=== PATIENT | female | born 1995 | race Caucasian/White ===

== ENCOUNTER → 2018-10-11 | Outpatient (CLI) | payer OTHER | END | disposition home or self-care (01) | LOC: LAB 11:08 | PROVIDERS: ATTEND Registered Nurse General Practice | DX: Z20.9 Contact with and (suspected) exposure to unspecified communicable disease (principal) | CPT/HCPCS: 36415; 86706; 86735; 86762; 86765; 86787 ==

== ENCOUNTER → 2019-10-09 | Outpatient (CLI) | payer OTHER | END | disposition home or self-care (01) | LOC: LAB 13:20 | PROVIDERS: ATTEND Nurse Practitioner Family | DX: Z20.9 Contact with and (suspected) exposure to unspecified communicable disease (principal) | CPT/HCPCS: 36415; 86706 ==

== ENCOUNTER → 2019-10-16 | Outpatient (CLI) | payer OTHER | END | disposition home or self-care (01) | LOC: LAB 14:57 | PROVIDERS: ATTEND Nurse Practitioner Family | DX: Z20.9 Contact with and (suspected) exposure to unspecified communicable disease (principal) | CPT/HCPCS: 86765 ==

== ENCOUNTER → 2021-07-06 | Outpatient (CLI) | payer BC ==
[2021-07-06 10:58] LABS: Basophils # (auto) 0 10 ^3/uL (0-0.2); Basophils % (auto) 0.2 % (0.0-2.0); Eosinophils # (auto) 0.2 10 ^3/uL (0-0.8); Eosinophils % (auto) 2.9 % (0.0-7.0); Hematocrit 40.6 % (36.0-46.0); Hemoglobin 14.3 g/dL (12.2-16.2); Lymphocytes # (auto) 2.7 10 ^3/uL (0.4-5.4); Lymphocytes % (auto) 44.1 % (10.0-50.0); Mean Corpuscular Hemoglobin 32.2 pg (28.0-32.0); Mean Corpuscular Hgb Conc. 35.2 g/dL (32.0-36.0); Mean Corpuscular Volume 91.6 fL (80.0-100.0); Monocytes # (auto) 0.5 10 ^3/uL (0-1.3); Monocytes % (auto) 8.4 % (0.0-12.0); Neutrophils # (auto) 2.7 10 ^3/uL (1.6-8.6); Neutrophils % (auto) 44.4 % (37.0-80.0); Nucleated Red Blood Cells % 0.1 %; Red Blood Cells 4.43 10^6/uL (4.0-5.20); Red Cell Distribution Width 12.8 % (11.8-14.3); White Blood Cell 6.1 10^3/uL (4.4-10.8)
[2021-07-06 11:41] LABS: Potassium 4.4 mmol/L (3.5-5.1)
[2021-07-06 12:06] LABS: Albumin 3.7 g/dL (3.4-5.0); BUN/Creatinine Ratio 14.9; Bilirubin, Total 0.4 mg/dL (0.2-1.0); Calcium 8.8 mg/dL (8.5-10.1); Total Protein 7.4 g/dL (6.4-8.2)
[2021-07-06 12:57] LABS: Urine Bacteria NONE SEEN /hpf (None Seen); Urine Blood Negative /uL (Negative); Urine Specific Gravity 1.023 (1.001-1.035); Urine WBC <1 /hpf (0 - 5)
== END | disposition home or self-care (01) ==
LOC: LAB 10:01
PROVIDERS: ATTEND Student in an Organized Health Care Education/Training Program
DX: Z00.00 Encounter for general adult medical examination without abnormal findings (principal); R03.0 Elevated blood-pressure reading, without diagnosis of hypertension
CPT/HCPCS: 36415; 80053; 80061; 81001; 84443; 85025

== ENCOUNTER → 2024-04-01 | Outpatient (CLI) | payer BC ==
[~2024-04-01] MED LIST: [UNRECOGNIZED DRUG - CODE] IM
[2024-04-01 12:49] LABS: Basophils # (auto) 0 10 ^3/uL (0-0.2); Basophils % (auto) 0.3 % (0.0-2.0); Eosinophils # (auto) 0.2 10 ^3/uL (0-0.8); Eosinophils % (auto) 1.4 % (0.0-7.0); Hematocrit 43.7 % (36.0-46.0); Hemoglobin 15.3 g/dL (12.2-16.2); Lymphocytes # (auto) 3.4 10 ^3/uL (0.4-5.4); Lymphocytes % (auto) 29.7 % (10.0-50.0); Mean Corpuscular Hemoglobin 32.4 pg (28.0-32.0); Mean Corpuscular Hgb Conc. 34.9 g/dL (32.0-36.0); Mean Corpuscular Volume 92.7 fL (80.0-100.0); Monocytes # (auto) 1.1 10 ^3/uL (0-1.3); Monocytes % (auto) 9.4 % (0.0-12.0); Neutrophils # (auto) 6.7 10 ^3/uL (1.6-8.6); Neutrophils % (auto) 59.2 % (37.0-80.0); Platelet Count (auto) 335 10^3/uL (140-450); Red Blood Cells 4.71 10^6/uL (4.0-5.20); Red Cell Distribution Width 12.2 % (11.8-14.3); White Blood Cell 11.3 10^3/uL (4.4-10.8)
[2024-04-01 13:13] LABS: Alanine Aminotransferase 15 U/L (7-40); Albumin 4.6 g/dL (3.2-4.8); Alkaline Phosphatase 35 U/L (46-116); Anion Gap 9 (5-15); Aspartate Aminotransferase 10 U/L (13-40); BUN/Creatinine Ratio 8.6 (10.0-20.0); Blood Urea Nitrogen 7 mg/dL (9-23); Calcium 10.2 mg/dL (8.7-10.4); Carbon Dioxide 24 mmol/L (20-31); Chloride 104 mmol/L (98-107); Cholesterol 156 mg/dL (< 200); Glucose 85 mg/dL (74-106); HDL Cholesterol 57 mg/dL (40-59); LDL Cholesterol 88 mg/dL (< 100); Potassium 3.9 mmol/L (3.5-5.1); Sodium 137 mmol/L (136-145); Thyroid Stimulating Hormone 1.14 uIU/mL (0.55-4.78); Triglycerides 98 mg/dL (< 150)
[2024-04-01 13:14] LABS: Bilirubin, Total 0.4 mg/dL (0.2-1.0); Total Protein 7.3 g/dL (5.7-8.2)
[2024-04-01 13:21] LABS: Beta HCG, Quantitative 114434.5 mIU/mL (1.5-4.2)
[2024-04-01 13:26] LABS: Amphetamine Screen, Urine Neg (NEGATIVE); Barbiturate Scree,Urine Neg (NEGATIVE); Benzodiazephine Screen, Urine Neg (NEGATIVE); Cannabinoid Screen, Urine Neg (NEGATIVE); Cocaine Screen, Urine Neg (NEGATIVE); Opiate Scree,Urine Neg (NEGATIVE); Phencyclidine Screen, Urine Neg (NEGATIVE)
[2024-04-02 05:08] LABS: Varicella Zoster IgG Antibody Reactive (Non Reactive)
[2024-04-02 08:07] LABS: RPR Non Reactive (Non Reactive)
[2024-04-02 13:06] LABS: Chlamydia Trachomatis, NAA Negative (Negative); Neisseria gonorrhoeae, NAA Negative (Negative)
== END | disposition home or self-care (01) ==
LOC: LAB 12:09
PROVIDERS: ATTEND Obstetrics & Gynecology
DX: Z34.00 Encounter for supervision of normal first pregnancy, unspecified trimester (principal); Z31.430 Encounter of female for testing for genetic disease carrier status for procreative management; Z36.0 Encounter for antenatal screening for chromosomal anomalies; N39.0 Urinary tract infection, site not specified
CPT/HCPCS: 36415; 80053; 80061; 80307; 83036; 84439; 84443; 84702; 85025; 86592; 86703; 86762; 86787; 86850; 86900; 86901; 87086; 87340; 87902

== ENCOUNTER → 2024-08-21 | Outpatient (CLI) | payer BC ==
[2024-08-21 10:34] LABS: Basophils # (auto) 0 10 ^3/uL (0-0.2); Basophils % (auto) 0.1 % (0.0-2.0); Eosinophils # (auto) 0.2 10 ^3/uL (0-0.8); Eosinophils % (auto) 1.7 % (0.0-7.0); Hematocrit 39.3 % (36.0-46.0); Lymphocytes # (auto) 2.3 10 ^3/uL (0.4-5.4); Lymphocytes % (auto) 24.4 % (10.0-50.0); Mean Corpuscular Hemoglobin 33.2 pg (28.0-32.0); Mean Corpuscular Hgb Conc. 35.6 g/dL (32.0-36.0); Mean Corpuscular Volume 93.3 fL (80.0-100.0); Monocytes % (auto) 10.5 % (0.0-12.0); Neutrophils % (auto) 63.3 % (37.0-80.0); Platelet Count (auto) 246 10^3/uL (140-450); Red Blood Cells 4.22 10^6/uL (4.0-5.20); Red Cell Distribution Width 12.6 % (11.8-14.3); White Blood Cell 9.4 10^3/uL (4.4-10.8)
[2024-08-21 10:36] LABS: Alanine Aminotransferase 15 U/L (7-40); Albumin 4.1 g/dL (3.2-4.8); Alkaline Phosphatase 51 U/L (46-116); Anion Gap 9 (5-15); Aspartate Aminotransferase 14 U/L (13-40); BUN/Creatinine Ratio 14.6 (10.0-20.0); Calcium 9.5 mg/dL (8.7-10.4); Carbon Dioxide 22 mmol/L (20-31); Chloride 105 mmol/L (98-107); Glucose 92 mg/dL (74-106); Potassium 3.9 mmol/L (3.5-5.1); Sodium 136 mmol/L (136-145); Total Protein 6.8 g/dL (5.7-8.2)
[2024-08-21 10:37] LABS: Bilirubin, Total 0.4 mg/dL (0.2-1.0); Blood Urea Nitrogen 7 mg/dL (9-23)
[2024-08-22 13:07] LABS: Chlamydia Trachomatis, NAA Negative (Negative); Neisseria gonorrhoeae, NAA Negative (Negative)
== END | disposition home or self-care (01) ==
LOC: LAB 08-09 10:55
DX: Z34.00 Encounter for supervision of normal first pregnancy, unspecified trimester (principal); Z3A.00 Weeks of gestation of pregnancy not specified
CPT/HCPCS: 36415; 80053; 82951; 83036; 85025; 86780

== ENCOUNTER 2024-09-19 15:00 | Observation (INO) | payer BC ==
[2024-09-19 15:49] LABS: Albumin 4.1 g/dL (3.2-4.8); Alkaline Phosphatase 74 U/L (46-116); Anion Gap 7 (5-15); BUN/Creatinine Ratio 11.1 (10.0-20.0); Carbon Dioxide 25 mmol/L (20-31); Chloride 105 mmol/L (98-107); Glucose 80 mg/dL (74-106); Potassium 3.6 mmol/L (3.5-5.1); Sodium 137 mmol/L (136-145); Total Protein 6.6 g/dL (5.7-8.2); Uric Acid 3.9 mg/dL (3.1-7.8)
[2024-09-19 15:50] LABS: Aspartate Aminotransferase 12 U/L (13-40); Bilirubin, Total 0.4 mg/dL (0.2-1.0); Blood Urea Nitrogen 7 mg/dL (9-23)
[2024-09-19 15:51] LABS: Alanine Aminotransferase 10 U/L (7-40)
--- NOTE | 2024-09-19 15:52 | DVH ---
BIOPHYSICAL PROFILE HISTORY: GDMA1/ r/o PIH TECHNIQUE: Multiple transabdominal real-time grayscale sonographic images through the gravid uterus o f the fetus with duplex doppler color flow and M-mode spectral analysis FINDINGS: BIOPHYSICAL PROFILE: breathing score: 2 movement score: 2 tone score: 2 Quantitative KAYA score: 2 (KAYA: 18.1 cm.) Total score: 8/8 Single live fetus in cephalic presentation. heart rate 154 beats per minute. Posterior placenta without previa or abruption Biophysical profile score 8/8 corresponding to an HECTOR of 11/14/24 IMPRESSION: Biophysical profile score: 8/8
[2024-09-19 15:55] LABS: Urine Bacteria MOD /hpf (None Seen); Urine Blood Negative /uL (Negative); Urine Budding Yeast OCCASIONAL /hpf (None Seen); Urine Clarity Turbid (Clear); Urine Color Yellow (Yellow); Urine Mucus FEW (None Seen); Urine Protein, UAD 1+ (Negative); Urine Squamous Epithelial Cell MANY /hpf (<5); Urine Urobilinogen Normal (Negative); Urine WBC 5 /HPF (0-5); Urine pH 6.5 (5.0-9.0)
[2024-09-19 16:03] LABS: INR 0.93 (0.9-1.15); Partial Thromboplastin Time 27.7 SEC (24.5-34.5); Prothrombin Time 9.9 sec (9.3-11.8)
[2024-09-19 16:03] LABS: Protein, Urine 23.8 mg/dL (1-14)
[2024-09-19 16:06] LABS: Creatinine, Urine 222.34 mg/dL (30.0-125.0); Urine Protein/Creatinine Ratio 0.11
[2024-09-19 16:41] LABS: Basophils # (auto) 0 10 ^3/uL (0-0.2); Basophils % (auto) 0.1 % (0.0-2.0); Eosinophils # (auto) 0.1 10 ^3/uL (0-0.8); Eosinophils % (auto) 0.8 % (0.0-7.0); Hematocrit 40.3 % (36.0-46.0); Hemoglobin 14.1 g/dL (12.2-16.2); Lymphocytes # (auto) 2.3 10 ^3/uL (0.4-5.4); Lymphocytes % (auto) 22.2 % (10.0-50.0); Mean Corpuscular Hemoglobin 32.8 pg (28.0-32.0); Mean Corpuscular Hgb Conc. 34.9 g/dL (32.0-36.0); Mean Corpuscular Volume 93.9 fL (80.0-100.0); Monocytes % (auto) 9.8 % (0.0-12.0); Neutrophils # (auto) 6.8 10 ^3/uL (1.6-8.6); Neutrophils % (auto) 67.1 % (37.0-80.0); Nucleated Red Blood Cells % 0.1 %; Platelet Count (auto) 245 10^3/uL (140-450); Red Blood Cells 4.29 10^6/uL (4.0-5.20); Red Cell Distribution Width 12.5 % (11.8-14.3); White Blood Cell 10.2 10^3/uL (4.4-10.8)
[2024-09-19] MEDS ORDERED: PREN-96 PO (16:59)
[2024-09-19] MEDS ORDERED: NITR-87 PO (16:59)
--- NOTE | 2024-09-20 11:48 | DVHDS2 ---
Physician Discharge Progress N Final Diagnosis: gdm ,pih 35wks Operations or Procedures: Operations or Procedures nst reactive reviewed,sono Condition on Discharge: Good Disposition: Home Discharge Instructions: Diet: Consistent carbohydrate Activity: No Restrictions, As Tolerated Medications: na Follow Up Care: Specialist: 2d Discharge Statement: "Patient was advised to return to the ER or call 911 if any headaches, dizziness, shortness of breath, chest pain, abdominal pain, bleeding, fevers, or worsening of medical condition. Patient was counseled about treatment plan, medications, possible side effects, patientverbalized understanding. All questions were answered to the best of my ability. This discharge took greater then 30 minutes in planning, reviewing documentation, counseling the patient, and discussing with other team members." Visit Coding OBGYN Date of Service: September 20, 2024 Billing Provider: BRITNEY MALONE DO ERCO MACHINE OPERATOR Common Visit Codes: [id number] OBS CARE (HIGH) ERCO MACHINE OPERATOR Procedure Codes: 07131-32- NON-STRESS TEST, 00866-74- ASSIST @ C- SECTION BRITNEY MALONE DO September 20, 2024 11:48
== END 2024-09-19 17:10 | disposition home or self-care (01) ==
LOC: UNDOADMOB 15:00 → LDRP 15:00 → UNDODISOB 17:10
PROVIDERS: ADMIT Obstetrics & Gynecology; ATTEND Obstetrics & Gynecology
DX: O24.419 Gestational diabetes mellitus in pregnancy, unspecified control (principal); O13.3 Gestational [pregnancy-induced] hypertension without significant proteinuria, third trimester; Z3A.35 35 weeks gestation of pregnancy; Z79.899 Other long term (current) drug therapy; Z98.890 Other specified postprocedural states
CPT/HCPCS: 36415; 76818; 80053; 81001; 82570; 82948; 82962; 84156; 84550; 85025; 85610; 85730; 94760; G0378; 59025; 76819

== ENCOUNTER 2024-09-20 00:34 | Observation (INO) | payer BC ==
[~2024-09-20 00:34] MED LIST changes: +NITR-87 PO; +PREN-96 PO
--- NOTE | 2024-09-26 14:32 | DVH ---
BIOPHYSICAL PROFILE HISTORY: GDMA1 TECHNIQUE: Multiple transabdominal real-time grayscale sonographic images through the gravid uterus of the fetus with duplex Doppler color flow and M-mode spectral analysis FINDINGS: BIOPHYSICAL PROFILE: breathing score: 2 movement score: 2 tone score: 2 Quantitative KAYA score: 2 (KAYA: 17.7 Cm.) Total score: 8 The cervix not well visualized. Single live fetus in cephalic presentation. heart rate 140 beats per minute. Posterior placenta without previa or abruption IMPRESSION: Biophysical profile score: 8/8
--- NOTE | 2024-09-27 22:43 | DVHDS2 ---
Physician Discharge Progress N Final Diagnosis: gdm 33wks Operations or Procedures: Operations or Procedures nst reactive reviwed,sono Condition on Discharge: Good Disposition: Home Discharge Instructions: Diet: Consistent carbohydrate Activity: No Restrictions, As Tolerated Medications: na Follow Up Care: Specialist: 1w Discharge Statement: "Patient was advised to return to the ER or call 911 if any headaches, dizziness, shortness of breath, chest pain, abdominal pain, bleeding, fevers, or worsening of medical condition. Patient was counseled about treatment plan, medications, possible side effects, patientverbalized understanding. All questions were answered to the best of my ability. This discharge took greater then 30 minutes in planning, reviewing documentation, counseling the patient, and discussing with other team members." Visit Coding OBGYN Date of Service: September 26, 2024 Billing Provider: BRITNEY MALONE DO DRUG COORDINATOR Common Visit Codes: [id number] OBS CARE (HIGH) DRUG COORDINATOR Procedure Codes: 64553-94- NON-STRESS TEST BRITNEY MALONE DO September 27, 2024 22:43
== END 2024-09-26 15:33 | disposition home or self-care (01) ==
LOC: LDRP 09-26 13:05
PROVIDERS: ADMIT Obstetrics & Gynecology; ATTEND Obstetrics & Gynecology
DX: O24.419 Gestational diabetes mellitus in pregnancy, unspecified control (principal); Z3A.33 33 weeks gestation of pregnancy; Z79.899 Other long term (current) drug therapy; Z98.890 Other specified postprocedural states
CPT/HCPCS: 76818; 81002; 82948; 82962; 94760; G0378; 59025; 76819

== ENCOUNTER 2024-10-02 08:29 | Observation (INO) | payer BC ==
[~2024-10-02] VITALS: Ht 160 cm; Wt 86.2 kg
[~2024-10-02 08:29] MED LIST changes: -PREN-96 PO
--- NOTE | 2024-10-02 15:16 | DVH ---
BIOPHYSICAL PROFILE HISTORY: GDMA1 Comparison Study: US BIOPHYSICAL PROFILE on DOS: 09/26/24, US BIOPHYSICAL PROFILE on DOS: 09/19/24 TECHNIQUE: Multiple real-time grayscale sonographic images through the gravid uterus of the fetus wit h duplex doppler color flow and M-mode spectral analysis FINDINGS: BIOPHYSICAL PROFILE: breathing score: 2 movement score: 2 tone score: 2 Quantitative KAYA score: 2 (KAYA: 17.1 cm.) Total score: 8/8 Single live fetus in cephalic presentation. heart rate 132 beats per minute. Grade 1 posterior placenta without previa or abruption Biophysical profile score 8/8 corresponding to an HECTOR of 11/14/24 IMPRESSION: Biophysical profile score: 8/8
[2024-10-02] MEDS ORDERED: PREN-96 PO (15:21)
--- NOTE | 2024-10-02 16:07 | DVHDS2 ---
Physician Discharge Progress N Final Diagnosis: testing for GDM, A1 Operations or Procedures: Operations or Procedures 28yo IUP@33.6wks VSS NST reactive FKC/PTL precautions reviewed Dr. Rae consulted, agree with POC. Other Interventions Other Interventions [facility] [id number] [place] [address] Ph: [phone] DIAGNOSTIC IMAGING Diagnostic Imaging Report : [id number] Signed PATIENT: TONY CORONADO ACCT: [id number] UNIT: [id number] : 1995 LOC: [facility] ROOM / BED: TRIAGE2 / A AGE / SEX: 28 / F ADM STATUS: ADM IN SERVICE 1424 ORDERING PHYSICIAN: BRITNEY RAE DO PROCEDURE(s): BPP - BIOPHYSICAL PROFILE REASON: GDMA1 ORDER NUMBER(s): [id number], ACCESSION NUMBER(s): [id number] BIOPHYSICAL PROFILE HISTORY: GDMA1 Comparison Study: US BIOPHYSICAL PROFILE on DOS: 09/26/24, US BIOPHYSICAL PROFILE on DOS: 09/19/24 TECHNIQUE: Multiple real-time grayscale sonographic images through the gravid uterus of the fetus with duplex doppler color flow and M-mode spectral analysis FINDINGS: BIOPHYSICAL PROFILE: breathing score: 2 movement score: 2 tone score: 2 Quantitative KAYA score: 2 (KAYA: 17.1 cm.) Total score: 8/8 Single live fetus in cephalic presentation. heart rate 132 beats per minute. Grade 1 posterior placenta without previa or abruption Biophysical profile score 8/8 corresponding to an HECTOR of 11/14/24 IMPRESSION: Biophysical profile score: 8/8 ATED BY: KRSITOFER HOPSON MD DICTATED DATE/TIME: 10/02/241513 SIGNED BY: KRISTOFER HOPSON MD SIGNED DATE/TIME: 10/02/241513 CC: Condition on Discharge: Stable Disposition: Home Discharge Instructions: Diet: Consistent carbohydrate Activity: No Restrictions, As Tolerated Medications: see med list Follow Up Care: Specialist: f/u in 1 wk Discharge Statement: "Patient was advised to return to the ER or call 911 if any headaches, dizziness, shortness of breath, chest pain, abdominal pain, bleeding, fevers, or worsening of medical condition. Patient was counseled about treatment plan, medications, possible side effects, patientverbalized understanding. All questions were answered to the best of my ability. This discharge took greater then 30 minutes in planning, reviewing documentation, counseling the patient, and discussing with other team members." Visit Coding OBGYN Date of Service: Oct 02, 2024 Billing Provider: ALLYSON HEARD CNM AIR CREW MEMBER Common Visit Codes: [id number] OBS CARE (HIGH) AIR CREW MEMBER Procedure Codes: 32360-63- NON-STRESS TEST ALLYSON HEARD CNM Oct 02, 2024 16:07
== END 2024-10-02 15:32 | disposition home or self-care (01) ==
LOC: LDRP 14:03 → UNDOADMOB 14:03 → LDRP 14:25
PROVIDERS: ADMIT Obstetrics & Gynecology; ATTEND Obstetrics & Gynecology
DX: O24.419 Gestational diabetes mellitus in pregnancy, unspecified control (principal); Z3A.33 33 weeks gestation of pregnancy; Z79.899 Other long term (current) drug therapy
CPT/HCPCS: 76818; 81002; 82948; 82962; 94760; G0378; 59025; 76819

== ENCOUNTER 2024-10-09 14:10 | Observation (INO) | payer BC ==
[~2024-10-09 14:10] MED LIST changes: +PREN-96 PO
--- NOTE | 2024-10-09 14:57 | DVH ---
BIOPHYSICAL PROFILE HISTORY: gdma1 TECHNIQUE: Multiple transabdominal real-time grayscale sonographic images through the gravid uterus of the fetus with duplex Doppler color flow and M-mode spectral analysis FINDINGS: BIOPHYSICAL PROFILE: breathing score: 2/2 movement score: 2/2 tone score: 2/2 Quantitative KAYA score: 2/2 (KAYA: 18.2 Cm.) Total score: 8/8 The cervix is closed Single live fetus in cephalic presentation. heart rate 148 beats per minute. Posterior placenta without previa or abruption IMPRESSION: 1. Biophysical profile score: 8/8 unchanged from previous exam done 10/02/2024
--- NOTE | 2024-10-09 15:22 | DVHDS2 ---
Physician Discharge Progress N Final Diagnosis: testing for GDM, A1 Operations or Procedures: Operations or Procedures 28yo IUP@34.6wks VSS NST reactive FKC/PTL precautions reviewed Dr. Rae consulted, agrees with POC. Other Interventions Other Interventions [facility] [id number] [place] [address] Ph: [phone] DIAGNOSTIC IMAGING Diagnostic Imaging Report : [id number] Signed PATIENT: TONY CORONADO ACCT: [id number] UNIT: [id number] : 1995 LOC: [facility] ROOM / BED: TRIAGE2 / A AGE / SEX: 28 / F ADM STATUS: ADM IN SERVICE 1417 ORDERING PHYSICIAN: BRITNEY RAE DO PROCEDURE(s): BPP - BIOPHYSICAL PROFILE REASON: gdma1 ORDER NUMBER(s): [id number], ACCESSION NUMBER(s): [id number] BIOPHYSICAL PROFILE HISTORY: gdma1 TECHNIQUE: Multiple transabdominal real-time grayscale sonographic images through the gravid uterus of the fetus with duplex Doppler color flow and M-mode spectral analysis FINDINGS: BIOPHYSICAL PROFILE: breathing score: 2/2 movement score: 2/2 tone score: 2/2 Quantitative KAYA score: 2/2 (KAYA: 18.2 Cm.) Total score: 8/8 The cervix is closed Single live fetus in cephalic presentation. heart rate 148 beats per minute. Posterior placenta without previa or abruption IMPRESSION: 1. Biophysical profile score: 8/8 unchanged from previous exam done 10/02/2024 ATED BY: IBAN FOWLER MD DICTATED DATE/TIME: 10/09/241454 SIGNED BY: IBAN FOWLER MD SIGNED DATE/TIME: 10/09/241454 CC: Condition on Discharge: Stable Disposition: Home Discharge Instructions: Diet: Consistent carbohydrate Activity: No Restrictions, As Tolerated Medications: see med list Follow Up Care: Specialist: f/u in 1 wk Discharge Statement: "Patient was advised to return to the ER or call 911 if any headaches, dizziness, shortness of breath, chest pain, abdominal pain, bleeding, fevers, or worsening of medical condition. Patient was counseled about treatment plan, medications, possible side effects, patientverbalized understanding. All questions were answered to the best of my ability. This discharge took greater then 30 minutes in planning, reviewing documentation, counseling the patient, and discussing with other team members." Visit Coding OBGYN Date of Service: Oct 09, 2024 Billing Provider: ALLYSON HEARD CNM MACHINE GUN MECHANIC Common Visit Codes: [id number] OBS CARE (HIGH) MACHINE GUN MECHANIC Procedure Codes: 64472-97- NON-STRESS TEST ALLYSON HEARD CNM Oct 09, 2024 15:22
== END 2024-10-09 15:24 | disposition home or self-care (01) ==
LOC: UNDOADMOB 14:10 → LDRP 14:10 → UNDODISOB 15:24
PROVIDERS: ADMIT Obstetrics & Gynecology; ATTEND Obstetrics & Gynecology
DX: O24.419 Gestational diabetes mellitus in pregnancy, unspecified control (principal); Z79.899 Other long term (current) drug therapy; Z3A.34 34 weeks gestation of pregnancy
CPT/HCPCS: 76818; 81002; 82948; 82962; 94760; G0378; 59025; 76819

== ENCOUNTER 2024-10-16 14:01 | Observation (INO) | payer BC ==
--- NOTE | 2024-10-16 14:51 | DVH ---
BIOPHYSICAL PROFILE HISTORY: GDMA1 comparison: 10/09/2024 TECHNIQUE: Multiple transabdominal real-time grayscale sonographic images through the gravid uterus of the fetus with duplex Doppler color flow and M-mode spectral analysis FINDINGS: BIOPHYSICAL PROFILE: breathing score: 2/2 movement score: 2/2 tone score: 2/2 Quantitative KAYA score: 2/2 (KAYA: 17. Cm.) Total score: 8 out of The cervix closed Single live fetus in cephalic presentation. heart rate 173 beats per minute. Posterior placenta without previa or abruption IMPRESSION: 1. Biophysical profile score: 8 out of 8 change from previous exam
--- NOTE | 2024-10-18 14:02 | DVHDS2 ---
Physician Discharge Progress N Final Diagnosis: gdm Operations or Procedures: Operations or Procedures nst reactive reviwed,sono Condition on Discharge: Good Disposition: Home Discharge Instructions: Diet: Consistent carbohydrate Activity: No Restrictions, As Tolerated Medications: na Follow Up Care: Specialist: 1w Discharge Statement: "Patient was advised to return to the ER or call 911 if any headaches, dizziness, shortness of breath, chest pain, abdominal pain, bleeding, fevers, or worsening of medical condition. Patient was counseled about treatment plan, medications, possible side effects, patientverbalized understanding. All questions were answered to the best of my ability. This discharge took greater then 30 minutes in planning, reviewing documentation, counseling the patient, and discussing with other team members." Visit Coding OBGYN Date of Service: Oct 16, 2024 Billing Provider: BRITNEY MALONE DO ASSIGNMENT MANAGER Common Visit Codes: [id number] OBS CARE (HIGH) ASSIGNMENT MANAGER Procedure Codes: 77990-85- NON-STRESS TEST BRITNEY MALONE DO Oct 18, 2024 14:02
== END 2024-10-16 15:14 | disposition home or self-care (01) ==
LOC: UNDOADMOB 14:01 → LDRP 14:01 → UNDODISOB 15:14
PROVIDERS: ADMIT Obstetrics & Gynecology; ATTEND Obstetrics & Gynecology
DX: O24.419 Gestational diabetes mellitus in pregnancy, unspecified control (principal); Z79.899 Other long term (current) drug therapy; Z3A.35 35 weeks gestation of pregnancy
CPT/HCPCS: 59025; 76819; 81002; 82948; 82962; 94760; G0378

== ENCOUNTER 2024-10-22 13:38 | Outpatient (CLI) | payer BC ==
[2024-10-22 13:51] LABS: Basophils # (auto) 0 10 ^3/uL (0-0.2); Basophils % (auto) 0.4 % (0.0-2.0); Eosinophils # (auto) 0.2 10 ^3/uL (0-0.8); Eosinophils % (auto) 2.2 % (0.0-7.0); Hematocrit 41.3 % (36.0-46.0); Hemoglobin 14.5 g/dL (12.2-16.2); Lymphocytes # (auto) 2.4 10 ^3/uL (0.4-5.4); Lymphocytes % (auto) 24.8 % (10.0-50.0); Mean Corpuscular Hemoglobin 32.7 pg (28.0-32.0); Mean Corpuscular Hgb Conc. 35.2 g/dL (32.0-36.0); Mean Corpuscular Volume 92.9 fL (80.0-100.0); Monocytes # (auto) 1.1 10 ^3/uL (0-1.3); Monocytes % (auto) 10.9 % (0.0-12.0); Neutrophils % (auto) 61.7 % (37.0-80.0); Nucleated Red Blood Cells % 0.1 %; Platelet Count (auto) 210 10^3/uL (140-450); Red Blood Cells 4.44 10^6/uL (4.0-5.20); Red Cell Distribution Width 12.7 % (11.8-14.3); White Blood Cell 9.7 10^3/uL (4.4-10.8)
[2024-10-24 01:07] LABS: Chlamydia Trachomatis, NAA Negative (Negative); Neisseria gonorrhoeae, NAA Negative (Negative)
== END 2024-10-22 17:00 | disposition home or self-care (01) ==
LOC: LAB 13:38
DX: Z34.93 Encounter for supervision of normal pregnancy, unspecified, third trimester (principal); Z3A.36 36 weeks gestation of pregnancy
CPT/HCPCS: 36415; 85025; 86780

== ENCOUNTER 2024-10-23 14:01 | Observation (INO) | payer BC ==
--- NOTE | 2024-10-23 15:18 | DVH ---
BIOPHYSICAL PROFILE HISTORY: GDMA1 TECHNIQUE: Multiple transabdominal real-time grayscale sonographic images through the gravid uterus of the fetus with duplex Doppler color flow and M-mode spectral analysis FINDINGS: BIOPHYSICAL PROFILE: breathing score: To movement score: 2 tone score: 2 Quantitative KAYA score: 2 (KAYA: 19.7 Cm.) Total score: 8/8 The cervix nonvisualized Single live fetus in cephalic presentation. heart rate 141 beats per minute. Posterior Grade 2 placenta without previa or abruption Single live fetus at 36 weeks 6 days Biophysical profile score 8/8 corresponding to an HECTOR of 11/14/2024 Estimated weight not calculated g IMPRESSION: 1. Biophysical profile score: 8/8
--- NOTE | 2024-10-23 17:21 | DVHDS2 ---
Physician Discharge Progress N Final Diagnosis: testing for GDM, A1 Operations or Procedures: Operations or Procedures 28yo IUP@36.6wks VSS NST reactive FKC/PTL/labor precautions reviewed. Dr. Rae consulted, agrees with POC. Other Interventions Other Interventions [facility] [id number] [place] [address] Ph: [phone] DIAGNOSTIC IMAGING Diagnostic Imaging Report : [id number] Signed PATIENT: TONY CORONADO ACCT: [id number] UNIT: [id number] : 1995 LOC: [facility] ROOM / BED: TRIAGE1 / A AGE / SEX: 28 / F ADM STATUS: ADM IN SERVICE 1422 ORDERING PHYSICIAN: BRITNEY RAE DO PROCEDURE(s): BPP - BIOPHYSICAL PROFILE REASON: GDMA1 ORDER NUMBER(s): [id number], ACCESSION NUMBER(s): [id number] BIOPHYSICAL PROFILE HISTORY: GDMA1 TECHNIQUE: Multiple transabdominal real-time grayscale sonographic images through the gravid uterus of the fetus with duplex Doppler color flow and M-mode spectral analysis FINDINGS: BIOPHYSICAL PROFILE: breathing score: To movement score: 2 tone score: 2 Quantitative KAYA score: 2 (KAYA: 19.7 Cm.) Total score: 8/8 The cervix nonvisualized Single live fetus in cephalic presentation. heart rate 141 beats per minute. Posterior Grade 2 placenta without previa or abruption Single live fetus at 36 weeks 6 days Biophysical profile score 8/8 corresponding to an HECTOR of 11/14/2024 Estimated weight not calculated g IMPRESSION: 1. Biophysical profile score: 8/8 ATED BY: IBAN GARCIA Jr., DO DICTATED DATE/TIME: 10/23/241515 SIGNED BY: IBAN GARCIA Jr., DO SIGNED DATE/TIME: 10/23/241515 CC: Condition on Discharge: Stable Disposition: Home Discharge Instructions: Diet: Consistent carbohydrate Activity: No Restrictions, As Tolerated Medications: see med list Follow Up Care: Specialist: f/u in 1wk Discharge Statement: "Patient was advised to return to the ER or call 911 if any headaches, dizziness, shortness of breath, chest pain, abdominal pain, bleeding, fevers, or worsening of medical condition. Patient was counseled about treatment plan, medications, possible side effects, patientverbalized understanding. All questions were answered to the best of my ability. This discharge took greater then 30 minutes in planning, reviewing documentation, counseling the patient, and discussing with other team members." Visit Coding OBGYN Date of Service: Oct 23, 2024 Billing Provider: ALLYSON HEARD CNM HISTORIOGRAPHY PROFESSOR Common Visit Codes: [id number] OBS CARE (HIGH) HISTORIOGRAPHY PROFESSOR Procedure Codes: 88983-93- NON-STRESS TEST ALLYSON HEARD CNM Oct 23, 2024 17:21
== END 2024-10-23 15:31 | disposition home or self-care (01) ==
LOC: LDRP 14:01
PROVIDERS: ADMIT Obstetrics & Gynecology; ATTEND Obstetrics & Gynecology
DX: O24.419 Gestational diabetes mellitus in pregnancy, unspecified control (principal); Z98.890 Other specified postprocedural states; Z79.899 Other long term (current) drug therapy; Z3A.36 36 weeks gestation of pregnancy
CPT/HCPCS: 76819; 81002; 82948; 82962; 94760; G0378; 76818

== ENCOUNTER 2024-10-30 06:47 | Observation (INO) | payer BC ==
--- NOTE | 2024-10-30 16:18 | DVH ---
BIOPHYSICAL PROFILE HISTORY: GDMA1 Comparison Study: US BIOPHYSICAL PROFILE on DOS: 10/23/24, US BIOPHYSICAL PROFILE on DOS: 10/16/24, US BIOPHYSICAL PROFILE on DOS: 10/09/24, US BIOPHYSICAL PROFILE on DOS: 10/02/24, US BIOPHYSICAL PROFILE on DOS: 09/26/24 TECHNIQUE: Multiple real-time grayscale sonographic images through the gravid uterus of the fetus wi th duplex Doppler color flow and M-mode spectral analysis FINDINGS: BIOPHYSICAL PROFILE: breathing2 score: 2 movement score: 2 tone score: 2 Quantitative KAYA score: 2 (KAYA: 19.1 Cm.) Total score: 8 The cervix is not visualized Single live fetus in cephalic presentation. heart rate 157.67 beats per minute. Grade 2, posterior placenta without previa or abruption IMPRESSION: Biophysical profile score: 8
--- NOTE | 2024-11-01 08:08 | DVHDS2 ---
Physician Discharge Progress N Final Diagnosis: gdm 37wks Operations or Procedures: Operations or Procedures nst reactive reviwed,sono Condition on Discharge: Good Disposition: Home Discharge Instructions: Diet: Consistent carbohydrate Activity: No Restrictions, As Tolerated Medications: na Follow Up Care: Specialist: 1w Discharge Statement: "Patient was advised to return to the ER or call 911 if any headaches, dizziness, shortness of breath, chest pain, abdominal pain, bleeding, fevers, or worsening of medical condition. Patient was counseled about treatment plan, medications, possible side effects, patientverbalized understanding. All questions were answered to the best of my ability. This discharge took greater then 30 minutes in planning, reviewing documentation, counseling the patient, and discussing with other team members." Visit Coding OBGYN Date of Service: Oct 30, 2024 Billing Provider: BRITNEY MALONE DO TIRE AND LUBE TECHNICIAN Common Visit Codes: [id number] INP/OBS CARE (HIGH) TIRE AND LUBE TECHNICIAN Procedure Codes: 91694-91- NON-STRESS TEST BRITNEY MALONE DO Nov 01, 2024 08:08
== END 2024-10-30 16:16 | disposition home or self-care (01) ==
LOC: LDRP 14:06
PROVIDERS: ADMIT Obstetrics & Gynecology; ATTEND Obstetrics & Gynecology
DX: O24.419 Gestational diabetes mellitus in pregnancy, unspecified control (principal); Z3A.37 37 weeks gestation of pregnancy; Z79.899 Other long term (current) drug therapy; Z98.890 Other specified postprocedural states
CPT/HCPCS: 76818; 81002; 82948; 82962; G0378; 59025; 76819

== ENCOUNTER 2024-11-06 09:14 | Observation (INO) | payer BC ==
--- NOTE | 2024-11-06 15:01 | DVH ---
BIOPHYSICAL PROFILE HISTORY: GDMA1 TECHNIQUE: Multiple transabdominal real-time grayscale sonographic images through the gravid uterus of the fetus with duplex Doppler color flow and M-mode spectral analysis FINDINGS: BIOPHYSICAL PROFILE: breathing score: 2 movement score: 2 tone score: 2 Quantitative KAYA score: 2 (KAYA: 17.1 Cm.) Total score: 8/8 The cervix not measured Single live fetus in vertex presentation. heart rate 148 beats per minute. Posterior Grade 3 placenta without previa or abruption Single live fetus at 30 weeks 6 days Biophysical profile score 8/8 corresponding to an HECTOR of 11/14/2024 Estimated weight not calculated g IMPRESSION: 1. Biophysical profile score: 8/8
[2024-11-06 15:52] LABS: Urine Protein, UAD Negative (Negative)
[2024-11-06 15:59] LABS: Protein, Urine 7.4 mg/dL (1-14)
[2024-11-06 16:03] LABS: Hematocrit 40.8 % (36.0-46.0); Hemoglobin 14.3 g/dL (12.2-16.2); Mean Corpuscular Hemoglobin 32.5 pg (28.0-32.0); Mean Corpuscular Volume 92.8 fL (80.0-100.0); Nucleated Red Blood Cells % 0.1 %
[2024-11-06 16:16] LABS: INR 0.9 (0.9-1.15); Partial Thromboplastin Time 26.7 SEC (24.5-34.5); Prothrombin Time 9.6 sec (9.3-11.8)
[2024-11-06 16:21] LABS: Alanine Aminotransferase 14 U/L (7-40); Albumin 3.9 g/dL (3.2-4.8); Anion Gap 10 (5-15); BUN/Creatinine Ratio 10.2 (10.0-20.0); Bilirubin, Total 0.3 mg/dL (0.2-1.0); Calcium 9.2 mg/dL (8.7-10.4); Carbon Dioxide 20 mmol/L (20-31); Chloride 106 mmol/L (98-107); Glucose 79 mg/dL (74-106); Potassium 4.0 mmol/L (3.5-5.1); Total Protein 6.4 g/dL (5.7-8.2); Uric Acid 4.7 mg/dL (3.1-7.8)
[2024-11-06 16:22] LABS: Alkaline Phosphatase 123 U/L (46-116); Blood Urea Nitrogen 6 mg/dL (9-23); Sodium 136 mmol/L (136-145)
--- NOTE | 2024-11-06 16:50 | DVHDS2 ---
Physician Discharge Progress N Final Diagnosis: testing for GDM, A1 Secondary Diagnosis: ruled out preeclampsia Operations or Procedures: Operations or Procedures 28yo IUP@38.6wks, Denies UCs/LOF/VB/GARCIA/vision changes/RUQ pain. Endorses +FM/+BH. VSS (one elevated BP 140/94, normotensive after) no hx of HTN at prior visits NST reactive BLE 1+ pitting edema FKC/PTL/PreE precautions reviewed Dr. Rae consulted, agrees with POC. Laboratory Tests Test 11/06/24 14:52 11/06/24 15:30 11/06/24 15:46 Range/Units POC Glucose 92 70-106 mg/dl Urine Color Light-yellow Yellow Urine Clarity Turbid H Clear Urine pH 7.0 5.0-9.0 Urine Specific [place] 1.009 1.001-1.035 Urine Protein Negative Negative Urine Ketones Negative Negative Urine Blood Negative Negative /uL Urine Nitrite Negative Negative Urine Bilirubin Negative Negative Urine Urobilinogen Normal Negative mg/dL Urine Leukocyte Esterase Negative Negative /uL Urine RBC 1 0 - 4 /hpf Urine Microscopic WBC 1 0-5 /HPF Urine Squamous Epithelial Cells Mod <5 /hpf Urine Bacteria Few H None Seen /hpf Urine Creatinine 67.33 30.0-125.0 mg/dL Urine Protein/Creatinine Ratio 0.11 Urine Glucose Normal Normal mg/dL Urine Total Protein 7.4 1-14 mg/dL White Blood Count 10.3 4.4-10.8 10^3/uL Red Blood Count 4.40 4.0-5.20 10^6/uL Hemoglobin 14.3 12.2-16.2 g/dL Hematocrit 40.8 36.0-46.0 % Mean Corpuscular Volume 92.8 80.0-100.0 fL Mean Corpuscular Hemoglobin 32.5 H 28.0-32.0 pg Mean Corpuscular Hemoglobin Concent 35.1 32.0-36.0 g/dL Red Cell Distribution Width 12.9 11.8-14.3 % Platelet Count 206 140-450 10^3/uL Mean Platelet Volume 8.0 6.9-10.8 fL Neutrophils (%) (Auto) 66.4 37.0-80.0 % Lymphocytes (%) (Auto) 21.5 10.0-50.0 % Monocytes (%) (Auto) 10.5 0.0-12.0 % Eosinophils (%) (Auto) 1.4 0.0-7.0 % Basophils (%) (Auto) 0.2 0.0-2.0 % Neutrophils # (Auto) 6.8 1.6-8.6 10 ^3/uL Lymphocytes # (Auto) 2.2 0.4-5.4 10 ^3/uL Monocytes # (Auto) 1.1 0-1.3 10 ^3/uL Eosinophils # (Auto) 0.1 0-0.8 10 ^3/uL Basophils # (Auto) 0 0-0.2 10 ^3/uL Nucleated Red Blood Cells 0.1 % Prothrombin Time 9.6 9.3-11.8 sec Prothrombin Time INR 0.90 0.9-1.15 Activated Partial Thromboplast Time 26.7 24.5-34.5 SEC Sodium Level 136 136-145 mmol/L Potassium Level 4.0 3.5-5.1 mmol/L Chloride Level 106 98-107 mmol/L Carbon Dioxide Level 20 20-31 mmol/L Anion Gap 10 5-15 Blood Urea Nitrogen 6 L 9-23 mg/dL Creatinine 0.59 0.550-1.02 mg/dL Glomerular Filtration Rate Calc 125 >90 mL/min BUN/Creatinine Ratio 10.2 10.0-20.0 Serum Glucose 79 74-106 mg/dL Uric Acid 4.7 3.1-7.8 mg/dL Calcium Level 9.2 8.7-10.4 mg/dL Total Bilirubin 0.3 0.2-1.0 mg/dL Aspartate Amino Transferase (AST) 23 13-40 U/L Alanine Aminotransferase (ALT) 14 7-40 U/L Alkaline Phosphatase 123 H 46-116 U/L Total Protein 6.4 5.7-8.2 g/dL Albumin 3.9 3.2-4.8 g/dL Other Interventions Other Interventions [facility] [address] [place] [address] Ph: [phone] DIAGNOSTIC IMAGING Diagnostic Imaging Report : [id number] Signed with Kayden PATIENT: TONY CORONADO ACCT: [id number] UNIT: [id number] : 1995 LOC: [facility] ROOM / BED: TRIAGE2 / A AGE / SEX: 28 / F ADM STATUS: ADM IN SERVICE 1421 ORDERING PHYSICIAN: BRITNEY RAE DO PROCEDURE(s): BPP - BIOPHYSICAL PROFILE REASON: GDMA1 ORDER NUMBER(s): [id number], ACCESSION NUMBER(s): [id number] ADDENDUM ADDENDUM # 1 IMPRESSION: 1. HECTOR 38 weeks 6 days ORIGINAL REPORT BIOPHYSICAL PROFILE HISTORY: GDMA1 TECHNIQUE: Multiple transabdominal real-time grayscale sonographic images through the gravid uterus of the fetus with duplex Doppler color flow and M-mode spectral analysis FINDINGS: BIOPHYSICAL PROFILE: breathing score: 2 movement score: 2 tone score: 2 Quantitative KAYA score: 2 (KAYA: 17.1 Cm.) Total score: 8/8 The cervix not measured Single live fetus in vertex presentation. heart rate 148 beats per minute. Posterior Grade 3 placenta without previa or abruption Single live fetus at 30 weeks 6 days Biophysical profile score 8/8 corresponding to an HECTOR of 11/14/2024 Estimated weight not calculated g IMPRESSION: 1. Biophysical profile score: 8/8 ATED BY: IBAN GARCIA Jr., DO DICTATED DATE/TIME: 11/06/241611 SIGNED BY: IBAN GARCIA Jr., DO SIGNED DATE/TIME: 11/06/24 161 CC: BIOPHYSICAL PROFILE HISTORY: GDMA1 Condition on Discharge: Stable Disposition: Home Discharge Instructions: Diet: Consistent carbohydrate Activity: No Restrictions, As Tolerated Medications: SEE MED LIST Follow Up Care: Specialist: f/u with OB provider (KSENIA Cooper) as scheduled tmrw. IOL scheduled for GDM, A1 on 11/12/24. Discharge Statement: "Patient was advised to return to the ER or call 911 if any headaches, dizziness, shortness of breath, chest pain, abdominal pain, bleeding, fevers, or worsening of medical condition. Patient was counseled about treatment plan, medications, possible side effects, patientverbalized understanding. All questions were answered to the best of my ability. This discharge took greater then 30 minutes in planning, reviewing documentation, counseling the patient, and discussing with other team members." Visit Coding OBGYN Date of Service: Nov 06, 2024 Billing Provider: ALLYSON HEARD CNM MULTIMEDIA TEACHER Common Visit Codes: [id number] OBS CARE (HIGH) MULTIMEDIA TEACHER Procedure Codes: 33062-37- NON-STRESS TEST ALLYSON HEARD CNM Nov 06, 2024 16:50
== END 2024-11-06 16:56 | disposition home or self-care (01) ==
LOC: LDRP 14:12
PROVIDERS: ADMIT Obstetrics & Gynecology; ATTEND Obstetrics & Gynecology
DX: O24.419 Gestational diabetes mellitus in pregnancy, unspecified control (principal); Z79.899 Other long term (current) drug therapy; Z3A.38 38 weeks gestation of pregnancy; Z86.2 Personal history of diseases of the blood and blood-forming organs and certain disorders involving the immune mechanism
CPT/HCPCS: 36415; 76818; 80053; 81001; 81002; 82570; 82962; 84156; 84550; 85025; 85610; 85730; 94760; G0378; 59025; 76819

== ENCOUNTER 2024-11-12 07:31 | Inpatient (IN) | payer BC ==
[~2024-11-12] VITALS: Ht 160 cm; Wt 91.6 kg
[2024-11-12] MEDS ORDERED: LIDOCAINE 2%HCL (LOCAL ANESTH.) INJ 20ML MDV IJ PRN (07:45)
[2024-11-12] MEDS ORDERED: BUTORPHANOL TARTRATE 2 MG/1 ML VIAL IV PRN ×2 (07:45)
[2024-11-12 08:45] LABS: Hematocrit 40.5 % (36.0-46.0); Hemoglobin 14.1 g/dL (12.2-16.2); Mean Corpuscular Hemoglobin 32.5 pg (28.0-32.0); Mean Corpuscular Volume 93.6 fL (80.0-100.0); Nucleated Red Blood Cells % 0.0 %
[2024-11-12 08:49] LABS: Urine Amorphous Crystal FEW /hpf (None Seen); Urine Protein, UAD Negative (Negative)
[2024-11-12 08:55] LABS: INR 0.91 (0.9-1.15); Partial Thromboplastin Time 26.0 SEC (24.5-34.5); Prothrombin Time 9.7 sec (9.3-11.8)
[2024-11-12 09:00] LABS: Alanine Aminotransferase 11 U/L (7-40); Albumin 3.8 g/dL (3.2-4.8); Anion Gap 12 (5-15); BUN/Creatinine Ratio 10.3 (10.0-20.0); Calcium 10.3 mg/dL (8.7-10.4); Chloride 105 mmol/L (98-107); Potassium 3.7 mmol/L (3.5-5.1); Total Protein 6.2 g/dL (5.7-8.2)
[2024-11-12 09:01] LABS: Bilirubin, Total 0.3 mg/dL (0.2-1.0)
[2024-11-12 09:03] LABS: Alkaline Phosphatase 124 U/L (46-116); Blood Urea Nitrogen 7 mg/dL (9-23); Carbon Dioxide 18 mmol/L (20-31); Glucose 124 mg/dL (74-106); Sodium 135 mmol/L (136-145)
[2024-11-12 09:04] LABS: Amphetamine Screen, Urine Neg (NEGATIVE); Barbiturate Scree,Urine Neg (NEGATIVE); Benzodiazephine Screen, Urine Neg (NEGATIVE); Cannabinoid Screen, Urine Neg (NEGATIVE); Cocaine Screen, Urine Neg (NEGATIVE); Opiate Scree,Urine Neg (NEGATIVE); Phencyclidine Screen, Urine Neg (NEGATIVE)
[2024-11-12] MEDS: DERMOPLAST 60ML BOTTLE TOP PRN (09:31)
[2024-11-12] MEDS: LACTATED RINGER'S 1,000 ML IV SCH (09:31)
[2024-11-12] MEDS: WITCH HAZEL-GLYCERIN PAD TOP PRN (09:31)
[2024-11-12] MEDS: PHISODERM TOP SOLN 240ML BTL TOP PRN (09:31)
[2024-11-12] MEDS ORDERED: ACCU-CHEK COMFORT CURVE STRIP VI SCH (10:00)
--- NOTE | 2024-11-12 12:17 | DVHHP2 ---
OB CC & HPI Date Date of Admission: Nov 12, 2024 Patient Identification: : 1 Para: 0 EDC: Nov 14, 2024 EGA: 39.5wks Chief Complaints: Reason for admission: induction of labor Indication for induction: medical complication (GDM, A2) History of Present Complaints 28yo IUP@39.5wks presents for scheduled IOL for GDM, A1. Denies UCs/LOF/VB/GARCIA/vision changes/RUQ pain. Endorses +FM. PNC: Routine PNC at [facility] OB, adequate visits, PNC complicated by GDM, A1. GTT elevated, dating based on LMP c/w 5w6d sono, GBS negative. Past Medical History Cardiac: No pertinent Hx Pulmonary: No pertinent Hx Central Nervous System: No pertinent Hx GI: No pertinent Hx Hemotology/Oncology: No pertinent Hx Hepatobiliary: No pertinent Hx Psychiatric: No pertinent Hx Musculoskeletal: No pertinent Hx Rheumotologic: No pertinent Hx Infectious Disease: No peritnent Hx ENT: No pertinent Hx Renal/: No pertinent Hx Endocrine: No pertinent Hx Dermatology: No pertinent Hx Past Surgical History: No pertinent Hx OB History OB History Care: Good Care Ultrasounds: Normal mid trimester US Obstetrical Complications: Gestational Diabetes (A1) Medical Complications: None Allergies: Coded Allergies: Sulfa Antibiotics (Verified Allergy, Severe, 11/12/24) Home Meds Active Scripts Medroxyprogesterone Acetate (C (Medroxyprogesterone Aceta) 150 Mg/Ml Inj, 150 MG IM ONCE for 1 Day, #1 INJ Prov:SELENA GONZALES DO 02/18/23 Reported Medications Vit W/ Ferrous Fumara ( One Daily) Daily Tab, 1 TAB PO DAILY, #90 TAB 3 Refills 10/02/24 Nitrofurantoin Monohydrate Mac (Macrobid) 100 Mg Cap, 100 MG PO, CAP 09/19/24 Current Medications Current Medications Medications (Trade) Dose Ordered Sig/Rosy Route PRN Reason Start Time Stop Time Status Last Admin Lactated Ringer's 1,000 ml @ 125 mls/hr Q8H IV 11/12/24 07:45 11/12/24 09:31 Diagnostic Test (Pha) (Accu-Chek Comfort Curve T) 1 strip Q4HR 11/12/24 10:00 Witch Tari (Tucks) 1 pad PRN PRN TOP PERINEAL AREA DISCOMFORT 11/12/24 07:45 11/12/24 09:31 Sodium Lauryl Sulfate (Phisoderm) 240 ml PRN PRN TOP PERINEAL AREA DISCOMFORT 11/12/24 07:45 11/12/24 09:31 Benzocaine (Dermoplast) 1 applic PRN PRN TOP PERINEAL AREA DISCOMFORT 11/12/24 07:45 11/12/24 09:31 Butorphanol Tartrate (Stadol Injection) 1 mg Q4HPRN PRN IV MODERATE PAIN (4-6 PAIN SCALE) 11/12/24 07:45 Butorphanol Tartrate (Stadol Injection) 2 mg Q4HPRN PRN IV SEVERE PAIN (7-10 PAIN SCALE) 11/12/24 07:45 Misoprostol (Cytotec) 50 mcg Q4HPRN PRN PO CERVICAL RIPENING 11/12/24 07:45 11/12/24 09:30 Lidocaine HCl (Xylocaine) 20 ml ONCE PRN IJ PERINEAL AREA DISCOMFORT 11/12/24 07:45 Family & Social History Family/Social History Past Family/Social History: denies Blood Type: A+ Rubella: immune RPR/VDRL: Negative GBS Status: Negative HBsAG: Negative Review of Systems Constitutional: No symptom reported Ears, Nose, & Throat: No symptom reported Eyes: No symptom reported Pulmonary/Respiratory: No symptom reported Cardiovascular: No symptom reported Gastrointestinal: No symptom reported Genitourinary: No symptom reported Musculoskeletal: No symptom reported Skin: No symptom reported Psychiatric: No symptom reported Endocrine: No symptom reported Hemotologic/Lymphatic: No symptom reported OB Admission Exam Physical Exam Vitals: VSS, see CPN EFW in office 7lbs 14oz on 11/07/24 per pt HEENT: TMs Normal, Fontanelles Normal, Nasal Mucosa Normal, Eyes non-injected, Oropharynx Normal, PERRLA, Moist Membranes, EOMI Heart: Rhythm Normal Lungs: Clear Abdomen: Gravid Extremities: Normal Reflexes: Normal Pelvic Exam: SVE by RN: 0/0/-3, vertex Membranes: Intact Heart Rate: 120's Accelerations: Accelerations Present Decelerations: No Decelerations Fertilizer Processing Supervisor Variability: Average (6-25) Contractions on Admission: None OB Plan Plan Admitting Diagnosis: induction of labor for GDM, A1 Plan: Induction Induction Methd: Misoprostol protocol Other Plan: A: 28yo IUP@39.5wks Induction of Labor for GDM, A1 Category I EFM Intact Membranes GBS negative P: Admit to L&D Informed consent obtained Discussed risks, benefits, alternatives of IOL for IUGR with pt. Pt consents to IOL with cytotec. blood glucose checks q4hrs now then q2hrs in active labor monitoring per order Routine labs ordered Pain mgmt PRN Frequent position changes in and out of bed encouraged Limit SVE unless necessary Intrauterine resuscitation PRN Anticipate JEFFERY is co-managing care with Dr. Rae. Visit Coding OBGYN Date of Service: Nov 12, 2024 Billing Provider: ALLYSON HEARD CNM DENTURE WAXER Common Visit Codes: [id number] INP/OBS CARE (HIGH) DENTURE WAXER Procedure Codes: 74319-47- NON-STRESS TEST ALLYSON HEARD CNM Nov 12, 2024 12:17
--- NOTE | 2024-11-12 23:51 | DVHPN2 ---
CNM Labor Progress Note Date and Time Seen Date Seen: Nov 12, 2024 Time Seen: 23:50 Subjective Patient reports: Feels worse Objective Vital Signs VSS, see CPN Monitoring Method Monitoring Method: External Heart Rate Heart Rate Baseline: 140 Heart Rate Variability: Moderate Presence of FHR Accelerations: Yes Presence of FHR Decelerations: No Are all 5 Components of the FH: Yes Contractions Contractions Frequency: Other (q3-6 min) Duration of Contraction: 50 Contractions Intensity: Mild Contractions Resting Tone: Relaxed Membranes Membranes: Intact Vaginal Exam Vag Exam Deferred: Yes Medications Medications - Pitocin: No Medications - Pain Medications: PRN Medication - Epidural: No Medication - Other s/p 4 doses of PO cytotec Lab Results Lab Results Current Medications Medications (Trade) Dose Ordered Sig/Rosy Start Time Stop Time Status Last Admin Dose Admin Lactated Ringer's 1,000 ml @ 125 mls/hr Q8H 11/12/24 07:45 11/12/24 09:31 125 MLS/HR Diagnostic Test (Pha) (Accu-Chek Comfort Curve T) 1 strip Q4HR 11/12/24 10:00 Witjames Tari (Tucks) 1 pad PRN PRN 11/12/24 07:45 11/12/24 09:31 1 PAD Sodium Lauryl Sulfate (Phisoderm) 240 ml PRN PRN 11/12/24 07:45 11/12/24 09:31 240 ML Benzocaine (Dermoplast) 1 applic PRN PRN 11/12/24 07:45 11/12/24 09:31 1 APPLIC Butorphanol Tartrate (Stadol Injection) 1 mg Q4HPRN PRN 11/12/24 07:45 Butorphanol Tartrate (Stadol Injection) 2 mg Q4HPRN PRN 11/12/24 07:45 Misoprostol (Cytotec) 50 mcg Q4HPRN PRN 11/12/24 07:45 11/12/24 21:58 50 MCG Lidocaine HCl (Xylocaine) 20 ml ONCE PRN 11/12/24 07:45 Naloxone HCl (Narcan) 0.2 mg PRN ONCE 11/13/24 01:30 11/13/24 01:33 DC Ephedrine Sulfate (ePHEDrine SULFATE) 10 mg PRN ONCE 11/13/24 01:30 11/13/24 01:33 DC Lactated Ringer's 500 ml @ 500 mls/hr Q1H ONCE 11/13/24 01:30 11/13/24 02:29 Laboratory Tests Test 11/12/24 20:47 11/12/24 08:05 11/12/24 07:20 Range/Units POC Glucose 81 70-106 mg/dl White Blood Count 11.9 H 4.4-10.8 10^3/uL Red Blood Count 4.33 4.0-5.20 10^6/uL Hemoglobin 14.1 12.2-16.2 g/dL Hematocrit 40.5 36.0-46.0 % Mean Corpuscular Volume 93.6 80.0-100.0 fL Mean Corpuscular Hemoglobin 32.5 H 28.0-32.0 pg Mean Corpuscular Hemoglobin Concent 34.7 32.0-36.0 g/dL Red Cell Distribution Width 12.6 11.8-14.3 % Platelet Count 209 140-450 10^3/uL Mean Platelet Volume 8.2 6.9-10.8 fL Neutrophils (%) (Auto) 63.5 37.0-80.0 % Lymphocytes (%) (Auto) 26.0 10.0-50.0 % Monocytes (%) (Auto) 8.6 0.0-12.0 % Eosinophils (%) (Auto) 1.7 0.0-7.0 % Basophils (%) (Auto) 0.2 0.0-2.0 % Neutrophils # (Auto) 7.5 1.6-8.6 10 ^3/uL Lymphocytes # (Auto) 3.1 0.4-5.4 10 ^3/uL Monocytes # (Auto) 1.0 0-1.3 10 ^3/uL Eosinophils # (Auto) 0.2 0-0.8 10 ^3/uL Basophils # (Auto) 0 0-0.2 10 ^3/uL Nucleated Red Blood Cells 0.0 % Prothrombin Time 9.7 9.3-11.8 sec Prothrombin Time INR 0.91 0.9-1.15 Activated Partial Thromboplast Time 26.0 24.5-34.5 SEC Sodium Level 135 L 136-145 mmol/L Potassium Level 3.7 3.5-5.1 mmol/L Chloride Level 105 98-107 mmol/L Carbon Dioxide Level 18 L 20-31 mmol/L Anion Gap 12 5-15 Blood Urea Nitrogen 7 L 9-23 mg/dL Creatinine 0.68 0.550-1.02 mg/dL Glomerular Filtration Rate Calc 121 >90 mL/min BUN/Creatinine Ratio 10.3 10.0-20.0 Serum Glucose 124 H 74-106 mg/dL Calcium Level 10.3 8.7-10.4 mg/dL Total Bilirubin 0.3 0.2-1.0 mg/dL Aspartate Amino Transferase (AST) 21 13-40 U/L Alanine Aminotransferase (ALT) 11 7-40 U/L Alkaline Phosphatase 124 H 46-116 U/L Total Protein 6.2 5.7-8.2 g/dL Albumin 3.8 3.2-4.8 g/dL Treponema pallidum Antibody Non-reactive Negative Hepatitis C Antibody Negative Negative Urine Color Light-yellow Yellow Urine Clarity Turbid H Clear Urine pH 7.0 5.0-9.0 Urine Specific [place] 1.016 1.001-1.035 Urine Protein Negative Negative Urine Ketones Negative Negative Urine Blood Negative Negative /uL Urine Nitrite Negative Negative Urine Bilirubin Negative Negative Urine Urobilinogen Normal Negative mg/dL Urine Leukocyte Esterase Negative Negative /uL Urine RBC 2 0 - 4 /hpf Urine Microscopic WBC 3 0-5 /HPF Urine Squamous Epithelial Cells Mod <5 /hpf Urine Amorphous Crystals Few None Seen /hpf Urine Bacteria Few H None Seen /hpf Urine Mucus Few None Seen Urine Glucose Normal Normal mg/dL Urine Opiates Screen Neg NEGATIVE Urine Fentanyl Screen Neg NEGATIVE Urine Barbiturates Screen Neg NEGATIVE Urine Phencyclidine Screen Neg NEGATIVE Urine Amphetamines Screen Neg NEGATIVE Urine Benzodiazepines Screen Neg NEGATIVE Urine Cocaine Screen Neg NEGATIVE Urine Cannabinoids Screen Neg NEGATIVE Assessment Assessment A: 28yo IUP@39.5wks Induction of Labor for GDM, A1 Category I EFM Intact Membranes GBS negative Plan Plan Continue with PO cytotec blood glucose checks q4hrs now then q2hrs in active labor monitoring per order Pain mgmt PRN Frequent position changes in and out of bed encouraged Limit SVE unless necessary Intrauterine resuscitation PRN Anticipate CNValdemar is co-managing care with Dr. Rae. Plan discussed with: Patient, Spouse Visit Coding OBGYN Date of Service: Nov 12, 2024 Billing Provider: ALLYSON HEARD CNM CVIR TECH Common Visit Codes: [id number] INP/OBS CARE(HIGH) ALLYSON HEARD CNM Nov 12, 2024 23:51
[2024-11-13] MEDS: NALOXONE HCL 0.4 MG/ML VIAL IV ONE (01:30)
[2024-11-13] MEDS: ROPIVACAINE HCL 100 ML ONE ×2 (01:37→11:00)
[2024-11-13] MEDS: LACT. RINGERS/OXYTOCIN 20UNITS 1,000 ML IV SCH (05:30)
[2024-11-13] MEDS ORDERED: TERBUTALINE SULFATE 1 MG/ML 1ML VIAL SC PRN (05:30)
[2024-11-13] MEDS: ONDANSETRON HCL 4 MG/2 ML VIAL IV PRN (07:03)
--- NOTE | 2024-11-13 07:13 | DVHPN2 ---
Chief Complaints Patient reports: No new complaints, Feels worse Nursing reports: No new complaints Objective Medications Current Medications Medications (Trade) Dose Ordered Sig/Rosy Route PRN Reason Start Time Stop Time Status Last Admin Benzocaine (Dermoplast) 1 applic PRN PRN TOP PERINEAL AREA DISCOMFORT 11/12/24 07:45 11/12/24 09:31 Diagnostic Test (Pha) (Accu-Chek Comfort Curve T) 1 strip Q4HR 11/12/24 10:00 Lactated Ringer's 1,000 ml @ 125 mls/hr Q8H IV 11/12/24 07:45 11/12/24 09:31 Lidocaine HCl (Xylocaine) 20 ml ONCE PRN IJ PERINEAL AREA DISCOMFORT 11/12/24 07:45 Ondansetron HCl (Zofran) 4 mg Q6HPRN PRN IV NAUSEA / VOMITING 11/13/24 07:00 11/13/24 07:03 Oxytocin 1,000 ml @ 6 ml/hr Q24H IV 11/13/24 05:30 11/13/24 05:30 Sodium Lauryl Sulfate (Phisoderm) 240 ml PRN PRN TOP PERINEAL AREA DISCOMFORT 11/12/24 07:45 11/12/24 09:31 Terbutaline Sulfate (Brethine Inj) 0.25 mg ONCE PRN SC Uterine tachysystole 11/13/24 05:30 Witch Tari (Tucks) 1 pad PRN PRN TOP PERINEAL AREA DISCOMFORT 11/12/24 07:45 11/12/24 09:31 Others VE-WRIGHT IN PLACE Studies Laboratory Tests 11/12/24 08:05 Test 11/12/24 08:05 Range/Units Serum Glucose 124 H 74-106 mg/dL Ass/Plan Assessment IOL Plan CONT WITH CURRENT CARE Visit Coding OBGYN Date of Service: Nov 13, 2024 Billing Provider: BRITNEY MALONE DO ACCOUNTS RECEIVABLE ASSOCIATE Common Visit Codes: [id number] OBS CARE (HIGH) ACCOUNTS RECEIVABLE ASSOCIATE Procedure Codes: 89511-56- NON-STRESS TEST BRITNEY MALONE DO Nov 13, 2024 07:13
[2024-11-13] MEDS: LACTATED RINGER'S 500 ML IV ONE (10:09)
[2024-11-13 12:03] LABS: Hematocrit 39.1 % (36.0-46.0); Hemoglobin 13.8 g/dL (12.2-16.2); Mean Corpuscular Hemoglobin 32.7 pg (28.0-32.0); Mean Corpuscular Volume 92.7 fL (80.0-100.0); Nucleated Red Blood Cells % 0.0 %
[2024-11-13 12:16] LABS: Alanine Aminotransferase 12 U/L (7-40); Albumin 3.9 g/dL (3.2-4.8); Anion Gap 10 (5-15); BUN/Creatinine Ratio 12.7 (10.0-20.0); Bilirubin, Total 0.5 mg/dL (0.2-1.0); Calcium 9.6 mg/dL (8.7-10.4); Chloride 107 mmol/L (98-107); Glucose 84 mg/dL (74-106); Potassium 3.9 mmol/L (3.5-5.1); Total Protein 6.3 g/dL (5.7-8.2)
[2024-11-13 12:21] LABS: Alkaline Phosphatase 127 U/L (46-116); Blood Urea Nitrogen 7 mg/dL (9-23); Carbon Dioxide 19 mmol/L (20-31); Sodium 136 mmol/L (136-145)
[2024-11-13 12:30] LABS: Uric Acid 5.5 mg/dL (3.1-7.8)
[2024-11-13 12:31] LABS: INR 0.92 (0.9-1.15); Partial Thromboplastin Time 26.4 SEC (24.5-34.5); Prothrombin Time 9.8 sec (9.3-11.8)
[2024-11-13 13:15] LABS: Protein, Urine 96.1 mg/dL (1-14)
--- NOTE | 2024-11-13 15:04 | DVHPN2 ---
Chief Complaints Patient reports: No new complaints, Feels worse Nursing reports: No new complaints Objective Medications Current Medications Medications (Trade) Dose Ordered Sig/Rosy Route PRN Reason Start Time Stop Time Status Last Admin Ondansetron HCl (Zofran) 4 mg Q6HPRN PRN IV NAUSEA / VOMITING 11/13/24 07:00 11/13/24 07:03 Oxytocin 1,000 ml @ 6 ml/hr Q24H IV 11/13/24 05:30 11/13/24 05:30 Terbutaline Sulfate (Brethine Inj) 0.25 mg ONCE PRN SC Uterine tachysystole 11/13/24 05:30 Others ve-5cm/70/-2 Studies Laboratory Tests 11/13/24 11:31 Test 11/13/24 11:31 Range/Units Serum Glucose 84 74-106 mg/dL Ass/Plan Assessment IOL Plan cont w pitocin Visit Coding OBGYN Date of Service: Nov 13, 2024 Billing Provider: BRITNEY MALONE DO PROFESSOR OF SURGERY Common Visit Codes: [id number] INP/OBS CARE(HIGH) PROFESSOR OF SURGERY Procedure Codes: 85991-63- NON-STRESS TEST BRITNEY MALONE DO Nov 13, 2024 15:04
--- NOTE | 2024-11-13 16:58 | DVHPN2 ---
CNM Labor Progress Note Date and Time Seen Date Seen: Nov 13, 2024 Time Seen: 16:36 Subjective Subjective Comment Pt is feeling some pain. Objective Vital Signs VSS, see CPN Monitoring Method Monitoring Method: External Heart Rate Heart Rate Baseline: 140 Heart Rate Variability: Moderate Presence of FHR Accelerations: Yes Presence of FHR Decelerations: No Are all 5 Components of the FH: Yes Contractions Contractions Frequency: Other (q2-4min) Duration of Contraction: 60 Contractions Intensity: Moderate Contractions Resting Tone: Relaxed Membranes Membranes: Bulging Vaginal Exam Vag Exam Deferred: No Vaginal Exam Dilation: 7 Vaginal Exam Effacement: 90 Vaginal Exam Station: -2 Vaginal Exam Presentation: VTX Vaginal Exam Show: Moderate Medications Medications - Pitocin: Yes (12mu) Medication - Epidural: Yes Medication - Other s/p 4 doses of cytotec Lab Results Lab Results Current Medications Medications (Trade) Dose Ordered Sig/Rosy Start Time Stop Time Status Last Admin Dose Admin Lactated Ringer's 1,000 ml @ 125 mls/hr Q8H 11/12/24 07:45 11/13/24 12:33 125 MLS/HR Diagnostic Test (Pha) (Accu-Chek Comfort Curve T) 1 strip Q4HR 11/12/24 10:00 Witch Tari (Tucks) 1 pad PRN PRN 11/12/24 07:45 11/12/24 09:31 1 PAD Sodium Lauryl Sulfate (Phisoderm) 240 ml PRN PRN 11/12/24 07:45 11/12/24 09:31 240 ML Benzocaine (Dermoplast) 1 applic PRN PRN 11/12/24 07:45 11/12/24 09:31 1 APPLIC Butorphanol Tartrate (Stadol Injection) 1 mg Q4HPRN PRN 11/12/24 07:45 11/13/24 05:31 DC Butorphanol Tartrate (Stadol Injection) 2 mg Q4HPRN PRN 11/12/24 07:45 11/13/24 05:31 DC Misoprostol (Cytotec) 50 mcg Q4HPRN PRN 11/12/24 07:45 11/13/24 05:31 DC 11/12/24 21:58 50 MCG Lidocaine HCl (Xylocaine) 20 ml ONCE PRN 11/12/24 07:45 Naloxone HCl (Narcan) 0.2 mg PRN ONCE 11/13/24 01:30 11/13/24 01:33 DC Ephedrine Sulfate (ePHEDrine SULFATE) 10 mg PRN ONCE 11/13/24 01:30 11/13/24 01:33 DC Lactated Ringer's 500 ml @ 500 mls/hr Q1H ONCE 11/13/24 01:30 11/13/24 02:29 DC Oxytocin 1,000 ml @ 6 ml/hr Q24H 11/13/24 05:30 11/13/24 05:30 6 ML/HR Terbutaline Sulfate (Brethine Inj) 0.25 mg ONCE PRN 11/13/24 05:30 Ondansetron HCl (Zofran) 4 mg Q6HPRN PRN 11/13/24 07:00 11/13/24 07:03 4 MG Laboratory Tests Test 11/13/24 15:06 11/13/24 11:31 11/13/24 11:15 11/12/24 08:05 Range/Units POC Glucose 86 70-106 mg/dl White Blood Count 14.2 H 4.4-10.8 10^3/uL Red Blood Count 4.22 4.0-5.20 10^6/uL Hemoglobin 13.8 12.2-16.2 g/dL Hematocrit 39.1 36.0-46.0 % Mean Corpuscular Volume 92.7 80.0-100.0 fL Mean Corpuscular Hemoglobin 32.7 H 28.0-32.0 pg Mean Corpuscular Hemoglobin Concent 35.3 32.0-36.0 g/dL Red Cell Distribution Width 13.0 11.8-14.3 % Platelet Count 217 140-450 10^3/uL Mean Platelet Volume 7.9 6.9-10.8 fL Neutrophils (%) (Auto) 72.2 37.0-80.0 % Lymphocytes (%) (Auto) 18.6 10.0-50.0 % Monocytes (%) (Auto) 8.4 0.0-12.0 % Eosinophils (%) (Auto) 0.7 0.0-7.0 % Basophils (%) (Auto) 0.1 0.0-2.0 % Neutrophils # (Auto) 10.3 H 1.6-8.6 10 ^3/uL Lymphocytes # (Auto) 2.7 0.4-5.4 10 ^3/uL Monocytes # (Auto) 1.2 0-1.3 10 ^3/uL Eosinophils # (Auto) 0.1 0-0.8 10 ^3/uL Basophils # (Auto) 0 0-0.2 10 ^3/uL Nucleated Red Blood Cells 0.0 % Prothrombin Time 9.8 9.3-11.8 sec Prothrombin Time INR 0.92 0.9-1.15 Activated Partial Thromboplast Time 26.4 24.5-34.5 SEC Sodium Level 136 136-145 mmol/L Potassium Level 3.9 3.5-5.1 mmol/L Chloride Level 107 98-107 mmol/L Carbon Dioxide Level 19 L 20-31 mmol/L Anion Gap 10 5-15 Blood Urea Nitrogen 7 L 9-23 mg/dL Creatinine 0.55 0.550-1.02 mg/dL Glomerular Filtration Rate Calc 127 >90 mL/min BUN/Creatinine Ratio 12.7 10.0-20.0 Serum Glucose 84 74-106 mg/dL Uric Acid 5.5 3.1-7.8 mg/dL Calcium Level 9.6 8.7-10.4 mg/dL Total Bilirubin 0.5 0.2-1.0 mg/dL Aspartate Amino Transferase (AST) 16 13-40 U/L Alanine Aminotransferase (ALT) 12 7-40 U/L Alkaline Phosphatase 127 H 46-116 U/L Total Protein 6.3 5.7-8.2 g/dL Albumin 3.9 3.2-4.8 g/dL Urine Creatinine 148.54 H 30.0-125.0 mg/dL Urine Protein/Creatinine Ratio 0.65 Urine Total Protein 96.1 H 1-14 mg/dL Treponema pallidum Antibody Non-reactive Negative Hepatitis C Antibody Negative Negative Test 11/12/24 07:20 Range/Units Urine Color Light-yellow Yellow Urine Clarity Turbid H Clear Urine pH 7.0 5.0-9.0 Urine Specific [place] 1.016 1.001-1.035 Urine Protein Negative Negative Urine Ketones Negative Negative Urine Blood Negative Negative /uL Urine Nitrite Negative Negative Urine Bilirubin Negative Negative Urine Urobilinogen Normal Negative mg/dL Urine Leukocyte Esterase Negative Negative /uL Urine RBC 2 0 - 4 /hpf Urine Microscopic WBC 3 0-5 /HPF Urine Squamous Epithelial Cells Mod <5 /hpf Urine Amorphous Crystals Few None Seen /hpf Urine Bacteria Few H None Seen /hpf Urine Mucus Few None Seen Urine Glucose Normal Normal mg/dL Urine Opiates Screen Neg NEGATIVE Urine Fentanyl Screen Neg NEGATIVE Urine Barbiturates Screen Neg NEGATIVE Urine Phencyclidine Screen Neg NEGATIVE Urine Amphetamines Screen Neg NEGATIVE Urine Benzodiazepines Screen Neg NEGATIVE Urine Cocaine Screen Neg NEGATIVE Urine Cannabinoids Screen Neg NEGATIVE Assessment Assessment A: 28yo IUP@39.6wks Induction of Labor for GDM, A1 Category I EFM Intact Membranes GBS negative Plan Plan RN to call anesthesia for epidural evaluation Continue with IV pitocin titration blood glucose checks q2hrs in active labor monitoring per order Pain mgmt - epidural in place Frequent position changes in bed encouraged Limit SVE unless necessary Intrauterine resuscitation PRN Anticipate JEFFERY is co-managing care with Dr. Rae. Plan discussed with: Patient, Other (family) Visit Coding OBGYN Date of Service: Nov 13, 2024 Billing Provider: ALLYSON HEARD CNM UPHOLSTERY TRIMMER Common Visit Codes: [id number] INP/OBS CARE(HIGH) ALLYSON HEARD CNM Nov 13, 2024 16:58
[2024-11-13] MEDS ORDERED: D5W/LACTATED RINGERS 1,000 ML IV SCH (21:30)
--- NOTE | 2024-11-13 22:05 | DVHPN2 ---
CNM Labor Progress Note Date and Time Seen Date Seen: Nov 13, 2024 Time Seen: 21:46 Subjective Patient reports: No new complaints Subjective Comment Pt consents to AROM after discussion Objective Vital Signs VSS, see CPN Monitoring Method Monitoring Method: External Heart Rate Heart Rate Baseline: 135 Heart Rate Variability: Minimal Presence of FHR Accelerations: Yes Presence of FHR Decelerations: No Are all 5 Components of the FH: Yes Contractions Contractions Frequency: Other (q2-4min) Duration of Contraction: 70 Contractions Intensity: Moderate Contractions Resting Tone: Relaxed Membranes Membranes: Ruptured (AROM) Amniotic Fluid Color: Clear Vaginal Exam Vag Exam Deferred: No (SVE: 7.5/90/-1) Vaginal Exam Presentation: VTX Vaginal Exam Show: Small Medications Medications - Pitocin: Yes (12mu) Medication - Epidural: Yes Medication - Other s/p 4 doses of cytotec Lab Results Lab Results Current Medications Medications (Trade) Dose Ordered Sig/Rosy Start Time Stop Time Status Last Admin Dose Admin Lactated Ringer's 1,000 ml @ 125 mls/hr Q8H 11/12/24 07:45 11/13/24 21:55 DC 11/13/24 12:33 125 MLS/HR Diagnostic Test (Pha) (Accu-Chek Comfort Curve T) 1 strip Q4HR 11/12/24 10:00 Oscar Marc (Ney) 1 pad PRN PRN 11/12/24 07:45 11/12/24 09:31 1 PAD Sodium Lauryl Sulfate (Phisoderm) 240 ml PRN PRN 11/12/24 07:45 11/12/24 09:31 240 ML Benzocaine (Dermoplast) 1 applic PRN PRN 11/12/24 07:45 11/12/24 09:31 1 APPLIC Butorphanol Tartrate (Stadol Injection) 1 mg Q4HPRN PRN 11/12/24 07:45 11/13/24 05:31 DC Butorphanol Tartrate (Stadol Injection) 2 mg Q4HPRN PRN 11/12/24 07:45 11/13/24 05:31 DC Misoprostol (Cytotec) 50 mcg Q4HPRN PRN 11/12/24 07:45 11/13/24 05:31 DC 11/12/24 21:58 50 MCG Lidocaine HCl (Xylocaine) 20 ml ONCE PRN 11/12/24 07:45 Naloxone HCl (Narcan) 0.2 mg PRN ONCE 11/13/24 01:30 11/13/24 01:33 DC Ephedrine Sulfate (ePHEDrine SULFATE) 10 mg PRN ONCE 11/13/24 01:30 11/13/24 01:33 DC Lactated Ringer's 500 ml @ 500 mls/hr Q1H ONCE 11/13/24 01:30 11/13/24 02:29 DC Oxytocin 1,000 ml @ 6 ml/hr Q24H 11/13/24 05:30 11/13/24 05:30 6 ML/HR Terbutaline Sulfate (Brethine Inj) 0.25 mg ONCE PRN 11/13/24 05:30 Ondansetron HCl (Zofran) 4 mg Q6HPRN PRN 11/13/24 07:00 11/13/24 22:00 4 MG Dextrose/Lactated Ringer's 1,000 ml @ 125 mls/hr Q8H 11/13/24 21:30 Laboratory Tests Test 11/13/24 21:27 11/13/24 11:31 11/13/24 11:15 11/12/24 08:05 Range/Units POC Glucose 73 70-106 mg/dl White Blood Count 14.2 H 4.4-10.8 10^3/uL Red Blood Count 4.22 4.0-5.20 10^6/uL Hemoglobin 13.8 12.2-16.2 g/dL Hematocrit 39.1 36.0-46.0 % Mean Corpuscular Volume 92.7 80.0-100.0 fL Mean Corpuscular Hemoglobin 32.7 H 28.0-32.0 pg Mean Corpuscular Hemoglobin Concent 35.3 32.0-36.0 g/dL Red Cell Distribution Width 13.0 11.8-14.3 % Platelet Count 217 140-450 10^3/uL Mean Platelet Volume 7.9 6.9-10.8 fL Neutrophils (%) (Auto) 72.2 37.0-80.0 % Lymphocytes (%) (Auto) 18.6 10.0-50.0 % Monocytes (%) (Auto) 8.4 0.0-12.0 % Eosinophils (%) (Auto) 0.7 0.0-7.0 % Basophils (%) (Auto) 0.1 0.0-2.0 % Neutrophils # (Auto) 10.3 H 1.6-8.6 10 ^3/uL Lymphocytes # (Auto) 2.7 0.4-5.4 10 ^3/uL Monocytes # (Auto) 1.2 0-1.3 10 ^3/uL Eosinophils # (Auto) 0.1 0-0.8 10 ^3/uL Basophils # (Auto) 0 0-0.2 10 ^3/uL Nucleated Red Blood Cells 0.0 % Prothrombin Time 9.8 9.3-11.8 sec Prothrombin Time INR 0.92 0.9-1.15 Activated Partial Thromboplast Time 26.4 24.5-34.5 SEC Sodium Level 136 136-145 mmol/L Potassium Level 3.9 3.5-5.1 mmol/L Chloride Level 107 98-107 mmol/L Carbon Dioxide Level 19 L 20-31 mmol/L Anion Gap 10 5-15 Blood Urea Nitrogen 7 L 9-23 mg/dL Creatinine 0.55 0.550-1.02 mg/dL Glomerular Filtration Rate Calc 127 >90 mL/min BUN/Creatinine Ratio 12.7 10.0-20.0 Serum Glucose 84 74-106 mg/dL Uric Acid 5.5 3.1-7.8 mg/dL Calcium Level 9.6 8.7-10.4 mg/dL Total Bilirubin 0.5 0.2-1.0 mg/dL Aspartate Amino Transferase (AST) 16 13-40 U/L Alanine Aminotransferase (ALT) 12 7-40 U/L Alkaline Phosphatase 127 H 46-116 U/L Total Protein 6.3 5.7-8.2 g/dL Albumin 3.9 3.2-4.8 g/dL Urine Creatinine 148.54 H 30.0-125.0 mg/dL Urine Protein/Creatinine Ratio 0.65 Urine Total Protein 96.1 H 1-14 mg/dL Treponema pallidum Antibody Non-reactive Negative Hepatitis C Antibody Negative Negative Test 11/12/24 07:20 Range/Units Urine Color Light-yellow Yellow Urine Clarity Turbid H Clear Urine pH 7.0 5.0-9.0 Urine Specific [place] 1.016 1.001-1.035 Urine Protein Negative Negative Urine Ketones Negative Negative Urine Blood Negative Negative /uL Urine Nitrite Negative Negative Urine Bilirubin Negative Negative Urine Urobilinogen Normal Negative mg/dL Urine Leukocyte Esterase Negative Negative /uL Urine RBC 2 0 - 4 /hpf Urine Microscopic WBC 3 0-5 /HPF Urine Squamous Epithelial Cells Mod <5 /hpf Urine Amorphous Crystals Few None Seen /hpf Urine Bacteria Few H None Seen /hpf Urine Mucus Few None Seen Urine Glucose Normal Normal mg/dL Urine Opiates Screen Neg NEGATIVE Urine Fentanyl Screen Neg NEGATIVE Urine Barbiturates Screen Neg NEGATIVE Urine Phencyclidine Screen Neg NEGATIVE Urine Amphetamines Screen Neg NEGATIVE Urine Benzodiazepines Screen Neg NEGATIVE Urine Cocaine Screen Neg NEGATIVE Urine Cannabinoids Screen Neg NEGATIVE Assessment Assessment 28yo IUP@39.6wks Induction of Labor for GDM, A1 Category II EFM Intact Membranes GBS negative Plan Plan Monitor for s/sx of infection Continue with IV pitocin titration blood glucose checks q2hrs in active labor monitoring per order Pain mgmt - epidural in place Frequent position changes in bed encouraged Limit SVE unless necessary Intrauterine resuscitation PRN Anticipate JEFFERY is co-managing care with Dr. Rae. Plan discussed with: Patient, Other (family) Visit Coding OBGYN Date of Service: Nov 13, 2024 Billing Provider: ALLYSON HEARD CNM [employer] Common Visit Codes: [id number] INP/OBS CARE(HIGH) ALLYSON HEARD CNM Nov 13, 2024 22:05
[2024-11-14] VITALS (19 sets, daily range): BP systolic 98–138; BP diastolic 59–80; PULSE 63–86; RESP 14–18; TEMP 97.9–98.2; O2SAT 94–98
[2024-11-14] MEDS: ROPIVACAINE HCL 100 ML ONE ×2 (00:52→03:47)
[2024-11-14] MEDS: ceFAZolin 2 GM/D5W50ml 50 ML IV ONE ×3 (04:45→06:30)
[2024-11-14] MEDS ORDERED: fentaNYL CITRATE 100 MCG/2 ML VL ONE (04:49)
[2024-11-14] MEDS ORDERED: MORPHINE SULF PF 5 MG/10 ML VIAL ONE (04:49)
[2024-11-14] MEDS ORDERED: OXYTOCIN 10UNIT/ML 1ML VIAL ONE (04:50)
--- NOTE | 2024-11-14 04:56 | DVHHP ---
ADMIT DATE: 11/14/2024 CHIEF COMPLAINT: Failure to progress. HISTORY OF PRESENT ILLNESS: The patient is a 28-year-old 1 para 0 with EDC 11/14/2024, estimated gestational age of 39+ weeks, admitted for induction of labor for GDMA1. The patient progressed to 9 cm, but did not have any descent. Baby remains at -2, with a lot of back pain, suspect OP and suspect estimated weight 8+. Despite ultrasound findings, risks and complications of shoulder dystocia discussed. The patient's options reviewed. Option of discussed with the patient to avoid shoulder dystocia as well in addition to prolonged labor with no good progress. The patient fully understands and agrees. PAST MEDICAL HISTORY: None. PAST SURGICAL HISTORY: None. SOCIAL HISTORY: None. FAMILY HISTORY: None. OBSTETRIC AND GYNECOLOGIC HISTORY: Blood type A positive, rubella immune, GBS negative. REVIEW OF SYSTEMS: Consistent with HPI. PHYSICAL EXAMINATION: VITAL SIGNS: Stable, afebrile. HEENT: Within normal limits. CARDIOVASCULAR: Regular rate and rhythm. LUNGS: Clear to auscultation. BREASTS: Symmetrical, no masses. ABDOMEN: Gravid. Estimated weight 8+. PELVIC: 9 cm, 90%, -2. EXTREMITIES: No clubbing, cyanosis, or edema. IMPRESSION: * Intrauterine at 39+ weeks. * Induction of labor, failed induction. * GDMA1, suspect macrosomia. * Failure to progress. PLAN: Primary low transverse . Informed consent obtained. Risks and complications of surgery including infection, bleeding, hematoma formation, injury to bowel or bladder, surrounding organ, possibility of DVT, pulmonary embolism, and risks of anesthesia were discussed with the patient. Options were reviewed. All questions answered. The patient fully understands. She wishes to proceed with planned procedure. DO IRAIS Flannery TID: [id number] RECEIPT: [id number]
[2024-11-14] MEDS ORDERED: PHENYLEPHRINE HCL 10 MG/ML VL ONE (04:57)
[2024-11-14] MEDS ORDERED: ONDANSETRON HCL 4 MG/2 ML VIAL ONE (04:57)
[2024-11-14] MEDS ORDERED: LACTATED RINGER'S 1,000 ML IV ONE (05:00)
[2024-11-14] MEDS ORDERED: IBUP-1456 PO (05:17)
[2024-11-14] MEDS ORDERED: HYDR-4072 PO ×2 (05:17→06:15)
[2024-11-14] MEDS ORDERED: DOCU-94 PO (05:17)
[2024-11-14] MEDS ORDERED: ceFAZolin 1GM/50ML 50 ML IV SCH (05:30)
[2024-11-14] MEDS: LACT. RINGERS/OXYTOCIN 20UNITS 1,000 ML IV ONE (05:30)
[2024-11-14] MEDS ORDERED: ONDANSETRON HCL 4 MG/2 ML VIAL IV PRN ×2 (05:30→06:30)
[2024-11-14] MEDS: CARBOPROST TROMETHAMINE 250 MCG/1ML VIAL IM ONE ×2 (06:00→07:00)
--- NOTE | 2024-11-14 06:12 | DVHOP2 ---
Operative Report DATE OF OPERATION: 11/14/24 PREOPERATIVE DIAGNOSES: Term WIH GDMA1,IOL FOR GDMA1,FTP,OP POSTOPERATIVE DIAGNOSES: SAME,UTERINE ATONY SURGEON: Ivette Rae D.O./HARITHA ANESTHESIOLOGIST: BLAIR TYPE OF ANESTHESIA : CONSENT: The patient was informed of the risks and benefits of the procedure. The patient was informed of the risks and benefits of the procedure. These include but are not limited to , complications of anesthesia, postoperative infection, incomplete relief of symptoms, recurrence of symptoms, damage to blood vessels, nerves and tendons, deep venous thrombosis, pulmonary embolism and possible need for repeat surgery in the future. FINDINGS: Baby [B] with Apgars of [8] and [9]. Grossly normal appearing tubes and ovaries.OP PROCEDURES: Primary low transverse section. PROCEDURE IN DETAIL: The patient was taken to the operating room. She already had an epidural in place. She was then placed in supine position with a lef tward tilt. A Pfannenstiel skin incision was made 2 cm above the symphysis pubis. This incision was carried to the underlying layer of fascia. The fascia was nicked in the midline. The incision was extended laterally. The superior aspect of the fascial incision was grasped and elevated. The same procedure was done to the inferior aspect of the fascial incision. The rectus muscles were then in the midline. Peritoneum was identified and entered. Peritoneal incision was extended superiorly and inferiorly with good visualization of the bladder. Bladder blade was inserted. Vesicouterine peritoneum was identified and entered. Lower uterine segment was incised in a transverse fashion. The was delivered from vertex presentation. was baby [B] with Apgars [8] and [9]. Placenta was then removed manually. Uterus was exteriorized and cleared of all clots and debris.UTERUS WAS BUGGY SUBSEQUENTLY HEMOBATE WAS INJECTED TO MYOMETRIUM . The incision was repaired using 0 Vicryl in a double-layered fashion. No bleeding was noted. Uterus was then returned to the abdomen. The gutters were cleared off all clots and debris. Peritoneum was closed using 0 Vicryl, fascia was closed using 0 Maxon, and skin was closed using guilherme. The patient tolerated the procedure well. She was taken to the recovery room in stable condition. ESTIMATED BLOOD LOSS: Estimated blood loss was noted to [id number] mL. Visit Coding OBGYN Date of Service: Nov 14, 2024 Billing Provider: IVETTE RAE DO ACCOUNTS PAYABLE REPRESENTATIVE Common Visit Codes: 63562-[id number] INP/OBS CARE (HIGH) ACCOUNTS PAYABLE REPRESENTATIVE Procedure Codes: [id number] DELIVERY ONLY IVETTE RAE DO Nov 14, 2024 06:12
--- NOTE | 2024-11-14 06:13 | POSTOP ---
Post-Operative Note Post-Operative Note Preop Diagnosis IUP AT TERM IOL,FTP,GDM,OP Postop Diagnosis: SAME,UTERINE ATONY Operation performed PLTCS Specimen BABY BOY,APGARS 8-9,OP Anesthesia: Regional Anesthesiologist: BLAIR Blood Loss(fluid mgmt) 1000ML Surgeon Britney Rae Screen Printing Equipment Setter HARITHA Implant NA Complications & Mgmt NONE Date 11/14/24 Time 06:12 Visit Coding OBGYN Date of Service: Nov 14, 2024 Billing Provider: BRITNEY RAE DO WATER RESOURCE MANAGER Common Visit Codes: [id number] INP/OBS CARE (HIGH) WATER RESOURCE MANAGER Procedure Codes: [id number] DELIVERY ONLY BRITNEY RAE DO Nov 14, 2024 06:13
[2024-11-14] MEDS ORDERED: NALOXONE HCL 0.4 MG/ML VIAL IV PRN (06:30)
[2024-11-14] MEDS ORDERED: diphenhdrAMINE HCL 50 MG/1 ML VL IV PRN (06:30)
[2024-11-14] MEDS: DIPHENOXYLATE W/ATROPINE 2.5 MG TAB ONE (06:30)
[2024-11-14] MEDS ORDERED: KETOROLAC TROMETH 30 MG/ML 1ML VIAL IV PRN (06:30)
[2024-11-14] MEDS: ACETAMINOPHEN IV 1000 MG/100ML (10MG/ML) IV ONE (06:35)
[2024-11-14] MEDS: ACETAMINOPHEN IV 100 ML IV ONE (06:36)
[2024-11-14] MEDS: KETOROLAC TROMETH 30 MG/ML 1ML VIAL ONE (06:54)
[2024-11-14] MEDS ORDERED: KETOROLAC TROMETH 30 MG/ML 1ML VIAL IV ONE (07:00)
[2024-11-14] MEDS: ceFAZolin 1GM/50ML 50 ML IV SCH (12:53)
[2024-11-14] MEDS ORDERED: ACETAMINOPHEN IV 1000 MG/100ML (10MG/ML) IV PRN (13:45)
[2024-11-14 21:27] LABS: Hematocrit 35.1 % (36.0-46.0); Hemoglobin 12.0 g/dL (12.2-16.2); Mean Corpuscular Hemoglobin 32.0 pg (28.0-32.0); Mean Corpuscular Volume 93.5 fL (80.0-100.0); Nucleated Red Blood Cells % 0.0 %
--- NOTE | 2024-11-14 23:42 | DVHPN2 ---
Progress Note Date Seen: Nov 14, 2024 Subjective S: Lochia minimal. Regular diet well tolerated. Ambulating well w/o feeling dizzy or lightheaded Catheter still in place. Pain relieved with oral analgesics. Passing flatus but no BM yet. w/o problem vital signs Vital Sign Date Time Temp Pulse Resp B/P (MAP) Pulse Ox O2 Delivery O2 Flow Rate FiO2 11/14/24 19:00 98.0 69 18 107/71 (83) 95 98.0 11/14/24 19:00 Room Air medications Current Medications Medications Dose Ordered Sig/Rosy Route Start Time Stop Time Status Last Admin Dose Admin Diagnostic Test (Pha) 1 strip Q4HR 11/12/24 10:00 Cancel Witch Tari 1 pad PRN PRN TOP 11/12/24 07:45 11/12/24 09:31 1 PAD Sodium Lauryl Sulfate 240 ml PRN PRN TOP 11/12/24 07:45 11/12/24 09:31 240 ML Benzocaine 1 applic PRN PRN TOP 11/12/24 07:45 11/14/24 07:04 1 APPLIC Lidocaine HCl 20 ml ONCE PRN IJ 11/12/24 07:45 Cancel Terbutaline Sulfate 0.25 mg ONCE PRN SC 11/13/24 05:30 Cancel Dextrose/Lactated Ringer's 1,000 ml @ 125 mls/hr Q8H IV 11/13/24 21:30 Cancel Ondansetron HCl 4 mg Q4HP PRN IV 11/14/24 05:30 Cancel Diphenhydramine HCl 25 mg Q4HP PRN IV 11/14/24 06:30 Ondansetron HCl 4 mg Q4HP PRN IV 11/14/24 06:30 Ketorolac Tromethamine 30 mg Q6HP PRN IV 11/14/24 06:30 11/19/24 06:29 Hold Cefazolin Sodium 50 ml @ 100 mls/hr Q8H IV 11/14/24 08:30 11/17/24 08:29 11/14/24 21:59 100 MLS/HR Acetaminophen 1,000 mg Q8HP PRN IV 11/14/24 13:45 laboratory and microbiology Laboratory Tests 11/14/24 20:58 11/13/24 11:31 Test 11/13/24 11:31 Range/Units Serum Glucose 84 74-106 mg/dL Objective O: A&O x3 NAD. Afebrile, VSS Chest: heart and lung sounds normal. Breasts: Nipples intact w/o cracks or soreness Abdomen: normal BS, soft, non-tender, no rebound or guarding, fundus firm @ U- 1, Lower abdominal Incision site with dressing, dry and intact. No edema, erythema or induration Extremities: no edema or tenderness Lochia - minimal Problems(with codes): (1) S/P primary low transverse Assessment/Plan A/P: 28 yo now Post operative & ppd # 0 s/p Primary Section for failed induction, doing well. Blood Type: A+ Breast feeding Rubella Immune Pain control with oral medications Bowel regimen: Increase fluid intake and fiber in diet, Laxative PRN Continue routine care Plan discussed with: Patient, Spouse, Other (family) Visit Coding OBGYN Date of Service: Nov 14, 2024 Billing Provider: ASHLEY HERNANDEZ CNM C[employer]ON MOLDING MACHINE OPERATOR Common Visit Codes: [id number] INP/OBS CARE(HIGH) ASHLEY HERNANDEZ CNM Nov 14, 2024 23:42
[2024-11-15] VITALS (10 sets, daily range): BP systolic 102–119; BP diastolic 52–76; PULSE 63–82; RESP 15–18; TEMP 97.9–98.6; O2SAT 95–98
[2024-11-15] MEDS ORDERED: HYDROcodone-ACET 5/325MG TAB PO PRN ×2 (05:15)
[2024-11-15] MEDS: SIMETHICONE 80 MG CHEWABLE TABLET PO SCH (05:50)
[2024-11-15 06:16] LABS: Hematocrit 35.7 % (36.0-46.0); Hemoglobin 12.3 g/dL (12.2-16.2); Mean Corpuscular Hemoglobin 32.3 pg (28.0-32.0); Mean Corpuscular Volume 94.3 fL (80.0-100.0); Nucleated Red Blood Cells % 0.0 %
[2024-11-15] MEDS: IBUPROFEN 800 MG TAB PO PRN (06:51)
[2024-11-15] MEDS: DOCUSATE SOD 100 MG CAP PO SCH (11:20)
[2024-11-15] MEDS ORDERED: hydrALAZINE HCL 20 MG/ML VL IV ONE (14:53)
[2024-11-15] MEDS ORDERED: MIDAZOLAM HCL 2MG/2ML 2ml VIAL (1mg/ml) IV ONE (14:55)
--- NOTE | 2024-11-16 02:22 | DVHPN2 ---
Progress Note Date Seen: Nov 16, 2024 Subjective Lochia minimal. Regular diet well tolerated. Ambulating well w/o feeling dizzy or lightheaded Urinating independently Pain relieved with oral pain medication PRN Passing flatus but no BM yet. w/o problem vital signs Vital Sign Date Time Temp Pulse Resp B/P (MAP) Pulse Ox O2 Delivery O2 Flow Rate FiO2 11/15/24 23:00 98.6 82 16 119/76 (90) 98 98.6 11/15/24 19:00 Room Air medications Current Medications Medications Dose Ordered Sig/Rosy Route Start Time Stop Time Status Last Admin Dose Admin Diagnostic Test (Pha) 1 strip Q4HR 11/12/24 10:00 Cancel Witch Tari 1 pad PRN PRN TOP 11/12/24 07:45 11/12/24 09:31 1 PAD Sodium Lauryl Sulfate 240 ml PRN PRN TOP 11/12/24 07:45 11/12/24 09:31 240 ML Benzocaine 1 applic PRN PRN TOP 11/12/24 07:45 11/14/24 07:04 1 APPLIC Lidocaine HCl 20 ml ONCE PRN IJ 11/12/24 07:45 Cancel Terbutaline Sulfate 0.25 mg ONCE PRN SC 11/13/24 05:30 Cancel Dextrose/Lactated Ringer's 1,000 ml @ 125 mls/hr Q8H IV 11/13/24 21:30 Cancel Ondansetron HCl 4 mg Q4HP PRN IV 11/14/24 05:30 Cancel Diphenhydramine HCl 25 mg Q4HP PRN IV 11/14/24 06:30 Ondansetron HCl 4 mg Q4HP PRN IV 11/14/24 06:30 Docusate Sodium 100 mg Q12HR PO 11/15/24 10:00 11/15/24 23:12 100 MG Dimethicone 80 mg QID PO 11/15/24 06:00 11/15/24 23:12 80 MG Ibuprofen 800 mg Q8HP PRN PO 11/15/24 05:15 11/15/24 19:25 800 MG Acetaminophen/ Hydrocodone Bitart 1 tab Q4HPRN PRN PO 11/15/24 05:15 Acetaminophen/ Hydrocodone Bitart 2 tab Q4HPRN PRN PO 11/15/24 05:15 laboratory and microbiology Laboratory Tests 11/15/24 05:55 11/13/24 11:31 Test 11/13/24 11:31 Range/Units Serum Glucose 84 74-106 mg/dL Objective A&O x4. No apparent distress. Affect appropriate Afebrile, VSS Chest: heart and lung sounds normal. Breasts: Nipples intact w/o cracks or soreness Abdomen: normal BS, soft, non-tender, no rebound or guarding, fundus firm @ U- 1, Lower abdominal Incision site with dressing, dry and intact. No edema, erythema or induration Extremities: no edema or tenderness Problems(with codes): (1) S/P primary low transverse Assessment/Plan 28 yo now Post operative & ppd # 2 s/p Primary Section for failed induction, doing well. Blood Type: A+ Breast feeding Rubella Immune -Continue pain management with oral medications as previously ordered -Increase fluid intake and fiber in diet to promote regular bowel movements, Laxative PRN -Educated patient on self-care and warning signs to watch for, including PPH, PPD, or pre-eclampsia -Continue routine care. Anticipate discharge today Plan discussed with: Patient and Spouse Plan discussed with: Patient, Spouse, Other Visit Coding OBGYN Date of Service: Nov 16, 2024 Billing Provider: ASHLEY HERNANDEZ CNM PLC ENGINEER Common Visit Codes: [id number] INP/OBS CARE(HIGH) ASHLEY HERNANDEZ CNM Nov 16, 2024 02:22
--- NOTE | 2024-11-16 02:26 | DVHDS2 ---
Obstetrics Discharge Summary Obstetrics Discharge Summary Date of Admission: Nov 12, 2024 Date of Discharge: Nov 16, 2024 Reason For Admission: Induction of Labor Intrapartum Procedures: (Low Cervical Transverse) Procedures: Hct/date: (35.7), Hgb/date: (12.3) Discharge Diagnosis: Term -Delivered Discharge Information: Activity (Unrestricted. Advance as tolerated. Balance activities with rest periods. No heavy lifting, pushing or straining. Pelvic rest x 6 weeks), Diet (Routine regular diet rich in fiber, protein, iron and vitamin C with adequate fluid intake.), Medications (Ibuprofen 600mg every 6 hours as needed for pain. Colace 100mg twice a day as needed to keep bowel movements soft and prevent constipation. Continue Vitamin and iron), Discharge to (Home), Accompanied by (Partner), Discarge date (11/16/24) Discharge Care Plan Instructions -Postoperative and self care instructions given - emergency signs and symptoms including but not limited to pre-eclampsia precautions and signs of infection, PPH & of PPD reviewed with patient. -Follow up with OB Provider in 1 week. Appointment schedules will be determined at that time Visit Coding OBGYN Date of Service: Nov 16, 2024 Billing Provider: ASHLEY HERNANDEZ CNM CODING AND REIMBURSEMENT SPECIALIST Common Visit Codes: [id number]/OBS DISCH DAY >30MIN ASHLEY HERNANDEZ CNM Nov 16, 2024 02:26
[2024-11-16 03:18] VITALS: BP 129/78; PULSE 88; RESP 16; TEMP 98.5; O2SAT 97
[2024-11-16 07:08] VITALS: BP 142/71; PULSE 77; RESP 16; TEMP 98.5; O2SAT 97
[2024-11-16 11:00] VITALS: BP 131/80; PULSE 88; RESP 16; TEMP 99; O2SAT 97
== END 2024-11-16 12:00 | disposition home or self-care (01) | DRG 788 ==
LOC: LDRP 07:31 → UNDOADMIN 07:31 → LDRP 07:42
PROVIDERS: ADMIT Obstetrics & Gynecology; ATTEND Obstetrics & Gynecology
PROC: 10D00Z1 Extraction of Products of Conception, Low, Open Approach (ICD-10-PCS; principal; 2024-11-14 05:26)
DX: O24.420 Gestational diabetes mellitus in childbirth, diet controlled (principal); O61.9 Failed induction of labor, unspecified; Z3A.39 39 weeks gestation of pregnancy; Z37.0 Single live birth; O62.2 Other uterine inertia
CPT/HCPCS: 36415; 59025; 59200; 62282; 80053; 80307; 81001; 81002; 82570; 82948; 82962; 84156; 84550; 85025; 85610; 85730; 86780; 86803; 86850; 86900; 86901; 94760; 94762; 96360; 96361; 96366; 96374; G0378; J0131; J1100; J1885; J2250; J2405; J2590